=== PATIENT | male | born 1970 | race Caucasian/White ===

== ENCOUNTER 2019-08-12 18:41 | Inpatient (IN) ==
[2019-08-12] MEDS ORDERED: ONDANSETRON INJ 2 MG/ML 2 ML VIAL IV STA (19:17)
[2019-08-12] MEDS ORDERED: LORazepam 1 MG/2 ML VIAL IV STA ×2 (19:28→22:30)
[2019-08-12] MEDS ORDERED: SODIUM CHLORIDE 0.9% 1000ML 1,000 ML IV SCH (19:30)
[2019-08-12 19:51] LABS: Hematocrit (blood only) 35.9 % (42-52); Hemoglobin 12.7 g/dL (14.0-18.0); Mean Corpuscular Hemoglobin 34.8 pg (25-34); Mean Corpuscular Hgb Conc 35.4 g/dL (32-36); Mean Corpuscular Volume 98.4 fL (80-100); Mean Platelet Volume 10.6 fL (7.4-10.4); Platelet Count 91 K/uL (130-400); RDW Standard Deviation 46.8 fL (36.4-46.3); Red Blood Count 3.65 M/uL (4.7-6.1); White Blood Count 3.81 K/uL (4.8-10.8)
[2019-08-12 19:52] LABS: Basophils # (auto) 0.04 K/uL (0-0.2); Eosinophils # (auto) 0.01 K/uL (0-0.5); Eosinophils % (auto) 0.3 %; Immature Granulocytes # (auto) 0.01 K/uL (0.00-0.02); Immature Granulocytes % (auto) 0.3 %; Lymphocytes # (auto) 1.26 K/uL (1.2-3.4); Lymphocytes % (auto) 33.1 %; Monocytes # (auto) 0.47 K/uL (0.11-0.59); Monocytes % (auto) 12.3 %; Neutrophils # (auto) 2.02 K/uL (1.4-6.5); Platelet Estimate Decreased (Normal)
[2019-08-12 19:53] LABS: Alanine Aminotransferase 262 U/L (12-78); Albumin Level 3.8 gm/dl (3.4-5.0); Aspartate Aminotransferase 560 U/L (15-37); BUN Creatinine Ratio 8.1 (10-20); Blood Urea Nitrogen 10 mg/dl (7-18); Calcium 8.9 mg/dl (8.5-10.1); Carbon Dioxide 21 mmol/L (21-32); Chloride 95 mmol/L (98-107); Creatinine Clr Calc Pharmacy 76.6 ml/min; Est GFR (African American) 84.1; Est GFR (Non-African American) 72.5; Glucose 178 mg/dl (70-99); Magnesium 1.7 mg/dl (1.8-2.4); Potassium 3.4 mmol/L (3.5-5.1); Sodium 137 mmol/L (136-145)
--- NOTE | 2019-08-12 19:53 | XRay Report ---
XR chest 1V portable CLINICAL HISTORY: weakness COMPARISON STUDY: No previous studies for comparison. FINDINGS: The cardiac and mediastinal contours are normal. There is no evidence of focal pulmonary co nsolidation. There is no evidence of failure. No pleural effusions are visualized.[ IMPRESSION: No active disease in the chest. Electronically signed by: Dax Lopez M.D. 08/12/2019 7:51 PM
[2019-08-12 20:04] LABS: Albumin Globulin Ratio 0.9 (0.9-2); Alkaline Phosphatase 107 U/L (45-117); Bilirubin,Total 1.5 mg/dl (0.2-1); Globulin 4.3 gm/dl (2.5-4.0); Total Protein 8.1 gm/dl (6.4-8.2); Troponin I < 0.015 ng/ml (0-0.045)
[2019-08-12] MEDS ORDERED: MAGNESIUM SULFATE / D5W 1 GM/100 ML BAG IV ONE (20:06)
[2019-08-12] MEDS ORDERED: THIAMINE HCL 100 MG in SYRINGE 9 ML IV STA (20:46)
[2019-08-12] MEDS ORDERED: FOLIC ACID 1 MG in SYRINGE 9.8 ML IV STA (20:46)
[2019-08-12] MEDS ORDERED: DIAZEPAM 5 MG/ML INJ 10ML VIAL IV STA (20:46)
[2019-08-12] MEDS ORDERED: NORMOSOL-R 250 ML IV ONE (20:48)
[2019-08-12] MEDS ORDERED: POTASSIUM CHLORIDE 20 MEQ TABCR PO STA (20:52)
[2019-08-12] MEDS ORDERED: GABAPENTIN 800 MG TAB PO STA (20:53)
--- NOTE | 2019-08-12 21:05 | CT Scan Report ---
CT head/brain wo con CLINICAL HISTORY: seizure COMPARISON STUDY: No previous studies for comparison. TECHNIQUE: Axial CT of the brain is performed from the vertex to the skull base. IV contrast was not administered for this examination. A dose lowering technique was utilized adhering to the principles of ALARA. CT DOSE: 537.48 mGy.cm FINDINGS: No intra or extra-axial mass lesions are visualized. There is no CT evidence of acute cortical infarc tion. There is no evidence of midline shift. There is no acute hemorrhage. No calvarial fractures ar e visualized. There is no evidence of pathologic ventricular dilatation. There is no evidence of acute sinusitis IMPRESSION: Normal noncontrast head CT. Electronically signed by: Dax Lopez M.D. 08/12/2019 9:04 PM
[2019-08-12 21:47] LABS: Lyme Ab IgG w/WB Rflx Negative (Negative); Lyme Ab IgM w/WB Rflx Negative (Negative)
[2019-08-12 21:47] LABS: Base Excess VBG 7.2 mEq/L; Oxygen Saturation VBG 65.9 %; pH VBG 7.48 (7.36-7.41)
--- NOTE | 2019-08-12 22:27 | History & Physical Report ---
Date of Service August 12, 2019 Assessment & Plan (1) Seizure: New onset Secondary to alcohol withdrawal hypertension, elevated secondary to the above Hypokalemia secondary to emesis, clinical dehydration, home diuretic hypomagnesemia secondary to alcoholism Anemia ? Unknown duration New onset thrombocytopenia possibly from alcoholism Alcoholic hepatitis, Maddrey's DF score 1.5 points Hyperglycemia rule out DM Medical telemetry Seizure precautions, Ativan as needed EEG, Neurology consult RE new onset seizures MRI brain with and without contrast for new onset seizures (if sedation possible as per patient request) DT precautions Replace electrolytes, IVF Appropriate to hold home diuretic for now until patient euvolemic Clonidine as needed uncontrolled blood pressure in the setting of alcohol withdrawal Psych consult RE depression Anemia work-up, transfuse PRBC if hemoglobin less than 7 and/or for symptomatic anemia DVT prophylaxis. SCDs RE thrombocytopenia Full code Patient's requesting updates from providers. Ms. Alyx Young, contact #[phone]. History of Present Illness Chief Complaint: Seizures Primary Care Provider: NO PCP History obtained from patient, family, and records. Medical history significant for hypertension, alcohol abuse, osteoarthritis. Patient is a resident of [place], [place] who is currently in town with his to visit daughter who is a [employer] freshman. They were on an indoor tour of the [place] when patient stood up from his seat and was noted to have seizure activity lasting 2 minutes described as stiffening followed by shaking. Tongue abrasion noted after episode. No incontinence. Patient unresponsive for about 5 minutes after episode as per . Patient noted to be confused when he woke up. No prior episodes. Patient denies headaches. Patient admits to drinking heavily about 4 days in a week the last 5 to 6 months due to some personal stressors. Possible depression as per patient, denies suicidality. Patient has not been sleeping well and eating as much at home the last few months. Patient noted to be shaking on days when he is not drinking as per . Patient denies chest pain, S OB, abdominal pain, black/bloody stools, dysuria symptoms. One episode of emesis after seizure episode. At the ER, patient received IV IV Ativan. Medical History as above Surgical History : Knee surgeries Family History : Depression, diabetes Personal/Social history : Non-smoker, alcohol abuse, currently unemployed, prior work at a [employer] Allergies Allergy/AdvReac Type Severity Reaction Status Date / Time No Known Allergies Allergy Verified 08/12/19 20:46 Home Medications Home Medications Medication Instructions Recorded Confirmed Type hydrochlorothiazide 25 mg PO DAILY 08/12/19 08/12/19 History trazodone 50 mg PO HS 08/12/19 08/12/19 History Past Med/Surg History Medical History Hypertension Mood disorder Family History Other No pertinent family history in first degree relatives Social History Preferred Language: [place] Beliefs That Will Affect Care: None Current Living Situation: Spouse and Family Feels Safe at Home: No Is there a partner from a previous relationship who is making you feel unsafe now?: No Any Concerns about Your Family Situation: No Would You Like to Speak to Someone About Your Situation: No Safety Concerns: Feels Safe At This Time Smoking Status: Never smoker Do You Dip or Chew Tobacco: No ; Hx Alcohol Use: Yes Alcohol type: hard liquor Hx Substance Use: No Review of Systems Review of Systems: As per HPI, all 10 systems reviewed, all other ROS negative Physical Exam Physical Exam: GENERAL: Slightly uncomfortable, slightly anxious, tremulous, no respiratory distress SKIN: Pallor , warm HEENT: Pale palpebral conjunctivae, no ptosis, dry buccal mucosa, contusions on the lateral edges of the tongue NECK : Supple, no tenderness CHEST : CTA, no tenderness HEART : Tachycardic, no obvious murmurs ABDOMEN: Some distention, nontender EXTREMITIES : No LE swelling/tenderness, no other conspicuous deformities noted NEUROLOGIC : Coherent, no facial asymmetry, tremulous Results & Data Vital Signs (Past 12 Hours) Vital Signs Temp Pulse Resp BP Pulse Ox 08/12/19 18:41 37.3 C 120 H 20 146/100 H 95 Laboratory Results Laboratory Results WBC 3.81 K/uL (4.8-10.8) L 08/12/19 19:11 RBC 3.65 M/uL (4.7-6.1) L 08/12/19 19:11 Hgb 12.7 g/dL (14.0-18.0) L 08/12/19 19:11 Hct 35.9 % (42-52) L 10/11/19 19:11 MCV 98.4 fL (80-100) 08/12/19 19:11 MCH 34.8 pg (25-34) H 08/12/19 19: MCHC 35.4 g/dL (32-36) 08/12/19 19:11 RDW Std Deviation 46.8 fL (36.4-46.3) H 08/12/19 19: RDW Coeff of Juan 13.0 % (11.5-14.5) 08/12/19: Plt Count 91 K/uL (130-400) L 08/12/19: MPV 10.6 fL (7.4-10.4) H 08/12/19: Immature Gran % (Auto) 0.3 % 08/12/19: Neut % (Auto) 53.0 % 08/12/19: Lymph % (Auto) 33.1 % 08/12/19: [place] % (Auto) 12.3 % 08/12/19: Eos % (Auto) 0.3 % 08/12/19: Baso % (Auto) 1.0 % 08/12/19 19: Immature Gran # (Auto) 0.01 K/uL (0.00-0.02) 08/12/19: Neut # (Auto) 2.02 K/uL (1.4-6.5) 08/12/19: Lymph # (Auto) 1.26 K/uL (1.2-3.4) 08/12/19: [place] # (Auto) 0.47 K/uL (0.11-0.59) 08/12/19: Eos # (Auto) 0.01 K/uL (0-0.5) 08/12/19: Baso # (Auto) 0.04 K/uL (0-0.2) 08/12/19: Platelet Estimate Decreased (Normal) L 08/12/19: VBG pH 7.48 (7.36-7.41) H 08/12/19 21:28 VBG pCO2 43 mmHg (38-50) 08/12/19 21:28 VBG pO2 34 mmHg 08/12/19 21:28 VBG HCO3 31 mmol/L 08/12/19 21:28 VBG O2 Saturation 65.9 % 08/12/19 21:28 VBG Base Excess 7.2 mEq/L 08/12/19 21:28 Barometric Pressure 733.7 mm/Hg 08/12/19 21:28 Sodium 137 mmol/L (136-145) 08/12/19 19:11 Potassium 3.4 mmol/L (3.5-5.1) L 08/12/19 19:11 Chloride 95 mmol/L (98-107) L 08/12/19 19:11 Carbon Dioxide 21 mmol/L (21-32) 08/12/19 19:11 Anion Gap 21.0 (3-11) H 08/12/19 19:11 BUN 10 mg/dl (7-18) 08/12/19 19:11 Creatinine 1.18 mg/dl (0.6-1.4) 08/12/19 19: Est Cr Clr Drug Dosing 76.6 ml/min 08/12/19 19:11 Est GFR ( Amer) 84.1 08/12/19 19:11 Est GFR (Non-Af Amer) 72.5 08/12/19 19:11 BUN/Creatinine Ratio 8.1 (10-20) L 08/12/19 19: Glucose 178 mg/dl (70-99) H 08/12/19 19:11 Lactate 2.0 mmol/L (0.4-2.0) 08/12/19 21:28 Calcium 8.9 mg/dl (8.5-10.1) 08/12/19 19: Magnesium 1.7 mg/dl (1.8-2.4) L 08/12/19 19:11 Total Bilirubin 1.5 mg/dl (0.2-1) H 08/12/19 19:11 AST 560 U/L (15-37) H 08/12/19 19:11 ALT 262 U/L (12-78) H 08/12/19 19:11 Alkaline Phosphatase 107 U/L (45-117) 08/12/19 19:11 Troponin I < 0.015 ng/ml (0-0.045) 08/12/19 19:11 Total Protein 8.1 gm/dl (6.4-8.2) 08/12/19 19:11 Albumin 3.8 gm/dl (3.4-5.0) 08/12/19 19:11 Globulin 4.3 gm/dl (2.5-4.0) H 08/12/19 19:11 Albumin/Globulin Ratio 0.9 (0.9-2) 08/12/19 19:11 Procalcitonin 0.21 ng/ml (0-0.5) 08/12/19 19:11 TSH 1.360 uIu/ml (0.300-4.500) 08/12/19 19:11 Ethyl Alcohol mg/dL < 3.0 mg/dl (0-3) 08/12/19 20:13 Anaplasma Smear See Comment 08/12/19 19:11 Lyme Disease IgG Ab Negative (Negative) 08/12/19 19:11 Lyme Disease IgM Ab Negative (Negative) 08/12/19 19:[address] head: Normal Chest x-ray : No active disease EKG as per my interpretation : Rate 115, sinus tachycardia, normal axis T wave flattening inferior leads
[2019-08-12 23:17] LABS: INR 1.1 (0.9-1.1); Partial Thromboplastin Ratio 0.9; Partial Thromboplastin Time 23.4 Seconds (21.0-31.0); Prothrombin Time 11.3 Seconds (9.0-12.0)
--- NOTE | 2019-08-12 23:25 | Emergency Department Note ---
Entered by Shanta Pearce acting as a scribe for History of Present Illness General Chief complaint: Seizure Stated complaint: SEIZURE Time Seen by Provider: 08/12/19 19:16 Source: patient History of Present Illness Onset (ago): hour(s) (1.5) Location: head (general) Pain Consistency: + other (episode ) Quality: + other (seizure-like activity) Associated symptoms: + confusion, + nausea/vomiting (now resolved ) and + other (positive shaking; positive not responding; positive stiffness; negative pain; negative abnormal speech; negative trouble with vision and hearing ); no headaches The patient is a 48 year old white male w/ PMHx of HTN and mood disorder who presents to the ED w/ CC of an episode of seizure-like activity beginning about 1.5 hours prior to arrival, per the patient's . The patient's states that at about 1805 the patient was sitting down when his arms began to shake and he was not responding. Per the patient's , the patient became stiff after shaking. The patient's states that this episode lasted for about two minutes. Per the patient's , the patient did not fall or hit his head during this episode. The patient states that he feels confused currently. Per the patient's , the patient vomited once after arrival to the ED, but the patient denies any current nausea. The patient denies current headache, pain, abnormal speech, and trouble with vision and hearing. He denies any recent falls. The patient denies any changes to his medications. The patient reports that he does not sleep well. He reports intermittent alcohol use. Home Medications Home Medications Medication Instructions Recorded Confirmed Type hydrochlorothiazide 25 mg PO DAILY 08/12/19 08/12/19 History trazodone 50 mg PO HS 08/12/19 08/12/19 History Allergies Allergy/AdvReac Type Severity Reaction Status Date / Time No Known Allergies Allergy Verified 08/12/19 20:46 Past Med/Surg History Medical History Hypertension Mood disorder Family History Other No pertinent family history in first degree relatives Social History Feels Safe at Home: Yes Smoking Status: Never smoker Review of Systems See HPI for pertinent positives & negatives. and A total of 10 systems reviewed and were otherwise negative Physical Exam Vital Signs Vital Signs - 24 hr 08/12/19 18:41 08/12/19 22:51 Temperature 37.3 C Temperature Source Oral Sepsis Recent Fever Within 48 Hours No Sepsis New/Unexplained Change in Mental Status No Sepsis Action Taken by Nursing No Action Required Pulse Rate 120 H Pulse Rate [Left Radial] 106 H Pulse Rhythm [Left Radial] Regular Pulse Strength [Left Radial] Normal Respiratory Rate 20 22 Respiratory Effort / Characteristics Non-Labored Non-Labored Respiratory Depth Normal Normal Respiratory Pattern Regular Regular Blood Pressure 146/100 H Blood Pressure [Left Arm] 140/88 Blood Pressure Mean 115 Blood Pressure Mean [Left Arm] 105 Blood Pressure Position [Left Arm] Lying Pulse Oximetry 95 98 Oxygen Delivery Method Room Air Room Air GENERAL: Tremulous in appearance. Anxious. EYE EXAM: Normal conjunctiva. PERRL, no anisocoria and EOM's grossly intact w/o pain. OROPHARYNX: Moist mucus membranes. Grossly normal dentition. NECK: Supple, no nuchal rigidity, no adenopathy, non-tender. no signs of meningismus. LUNGS: Clear to auscultation. Normal chest wall mechanics. HEART: Tachycardic and regular, no MRG. ABDOMEN: Abdomen soft, non-tender, normo-active bowel sounds, no masses, no rebound or guarding. BACK: No CVA TTP. SKIN: No rashes and no bruising. UPPER EXTREMITIES: Upper extremities are grossly normal. LOWER EXTREMITIES: No pitting edema. No calf pain. NEURO EXAM: A&O x3, cranial nerves II-XII grossly intact, normal speech, 5/5 strength throughout, no sensory deficits, good finger to nose, no pronator drift, moves all 4 extremities on command w/o issue. Bilateral upper and lower extremity tremors noted. Course 1921: Past medical records reviewed. The patient was evaluated in room C10. A complete history and physical exam was performed. 2033: Upon reevaluation, the patient reports drinking 1/2 pint of vodka at least four times per week. 2051: I discussed the case with Dr. Hansen Hospitalist who accepts the patient for further evaluation. Consultations Consultation #1: [facility]. Time: 20:52 Administered Medications Discontinued Medications Diazepam (Valium) 10 mg IV NOW STA Stop: 08/12/19 20:47 Last Admin: 08/12/19 21:04 Dose: 10 mg Documented by: [id number] Gabapentin (Neurontin) 1,200 mg PO NOW STA Stop: 08/12/19 20:54 Last Admin: 08/12/19 22:48 Dose: 1,200 mg Documented by: [id number] Sodium Chloride (Nss 1000ml) 1,000 mls @ 999 mls/hr IV .Q1H1M TRE Stop: 08/12/19 20:30 Last Infusion: 08/12/19 21:06 Dose: 0 mls/hr Documented by: [id number] Admin: 08/12/19 19:50 Dose: 999 mls/hr Documented by: [id number] Lorazepam (Ativan) 1 mg in 2 mls @ 2 mls/min IV NOW STA Stop: 08/12/19 19:29 Last Admin: 08/12/19 19:47 Dose: 2 mls/min Documented by: [id number] Magnesium Sulfate/Dextrose (Magnesium Sulfate / D5w) 1 gm in 100 mls @ 100 mls/hr IV ONE ONE Stop: 08/12/19 21:05 Last Infusion: 08/12/19 21:24 Dose: 0 mls/hr Documented by: [id number] Admin: 08/12/19 20:20 Dose: 100 mls/hr Documented by: [id number] Thiamine HCl 100 mg/ Syringe 10 mls @ 2 mls/min IV NOW STA Stop: 08/12/19 20:50 Last Admin: 08/12/19 21:27 Dose: 2 mls/min Documented by: [id number] Parenteral Electrolytes (Normosol-R) 250 mls @ 250 mls/hr IV .Q1H ONE Stop: 08/12/19 21:47 Last Admin: 08/12/19 21:45 Dose: 250 mls/hr Documented by: [id number] Lorazepam (Ativan) 1 mg in 2 mls @ 2 mls/min IV NOW STA Stop: 08/12/19 22:31 Last Admin: 08/12/19 22:51 Dose: 2 mls/min Documented by: [id number] Ondansetron HCl (Zofran) 4 mg IV NOW STA Stop: 08/12/19 19:18 Last Admin: 08/12/19 19:47 Dose: 4 mg Documented by: [id number] Potassium Chloride (Klor-Con M20) 40 meq PO NOW STA Stop: 08/12/19 20:53 Last Admin: 08/12/19 22:47 Dose: 40 meq Documented by: [id number] Medical Decision Making Medical Records Attestation: I reviewed the patient's medical records. Home Medications Current Medication List: was personally reviewed by me Laboratory Data Attestation: I reviewed the patient's lab results. Result diagrams: 08/12/19 19:11 08/12/19 19:11 Lab Results 08/12/19 08/12/19 08/12/19 Range/Units 19: 19:11 19:11 WBC 3.81 L (4.8-10.8) K/uL RBC 3.65 L (4.7-6.1) M/uL Hgb 12.7 L (14.0-18.0) g/dL Hct 35.9 L (42-52) % MCV 98.4 (80-100) fL MCH 34.8 H (25-34) pg MCHC 35.4 (32-36) g/dL RDW Std Deviation 46.8 H (36.4-46.3) fL RDW Coeff of Juan 13.0 (11.5-14.5) % Plt Count 91 L (130-400) K/uL MPV 10.6 H (7.4-10.4) fL Immature Gran % (Auto) 0.3 % Neut % (Auto) 53.0 % Lymph % (Auto) 33.1 % Charlotte % (Auto) 12.3 % Eos % (Auto) 0.3 % Baso % (Auto) 1.0 % Immature Gran # (Auto) 0.01 (0.00-0.02) K/uL Neut # (Auto) 2.02 (1.4-6.5) K/uL Lymph # (Auto) 1.26 (1.2-3.4) K/uL Charlotte # (Auto) 0.47 (0.11-0.59) K/uL Eos # (Auto) 0.01 (0-0.5) K/uL Baso # (Auto) 0.04 (0-0.2) K/uL Platelet Estimate Decreased L (Normal) PT (9.0-12.0) Seconds INR (0.9-1.1) APTT (21.0-31.0) Seconds PTT Ratio VBG pH (7.36-7.41) VBG pCO2 (38-50) mmHg VBG pO2 mmHg VBG HCO3 mmol/L VBG O2 Saturation % VBG Base Excess mEq/L Barometric Pressure mm/Hg Sodium 137 (136-145) mmol/L Potassium 3.4 L (3.5-5.1) mmol/L Chloride 95 L (98-107) mmol/L Carbon Dioxide 21 (21-32) mmol/L Anion Gap 21.0 H (3-11) BUN 10 (7-18) mg/dl Creatinine 1.18 (0.6-1.4) mg/dl Est Cr Clr Drug Dosing 76.6 ml/min Est GFR ( Amer) 84.1 Est GFR (Non-Af Amer) 72.5 BUN/Creatinine Ratio 8.1 L (10-20) Glucose 178 H (70-99) mg/dl Lactate (0.4-2.0) mmol/L Calcium 8.9 (8.5-10.1) mg/dl Magnesium 1.7 L (1.8-2.4) mg/dl Total Bilirubin 1.5 H (0.2-1) mg/dl AST 560 H (15-37) U/L ALT 262 H (12-78) U/L Alkaline Phosphatase 107 (45-117) U/L Troponin I < 0.015 (0-0.045) ng/ml Total Protein 8.1 (6.4-8.2) gm/dl Albumin 3.8 (3.4-5.0) gm/dl Globulin 4.3 H (2.5-4.0) gm/dl Albumin/Globulin Ratio 0.9 (0.9-2) Procalcitonin (0-0.5) ng/ml TSH 1.360 (0.300-4.500) uIu/ml Ethyl Alcohol mg/dL (0-3) mg/dl Anaplasma Smear See Comment Lyme Disease IgG Ab Negative (Negative) Lyme Disease IgM Ab Negative (Negative) 10/11/19 10/11/19 10/11/19 Range/Units 19:11 19:11 20:13 WBC (4.8-10.8) K/uL RBC (4.7-6.1) M/uL Hgb (14.0-18.0) g/dL Hct (42-52) % MCV (80-100) fL MCH (25-34) pg MCHC (32-36) g/dL RDW Std Deviation (36.4-46.3) fL RDW Coeff of Juan (11.5-14.5) % Plt Count (130-400) K/uL MPV (7.4-10.4) fL Immature Gran % (Auto) % Neut % (Auto) % Lymph % (Auto) % Charlotte % (Auto) % Eos % (Auto) % Baso % (Auto) % Immature Gran # (Auto) (0.00-0.02) K/uL Neut # (Auto) (1.4-6.5) K/uL Lymph # (Auto) (1.2-3.4) K/uL Charlotte # (Auto) (0.11-0.59) K/uL Eos # (Auto) (0-0.5) K/uL Baso # (Auto) (0-0.2) K/uL Platelet Estimate (Normal) PT 11.3 (9.0-12.0) Seconds INR 1.1 (0.9-1.1) APTT 23.4 (21.0-31.0) Seconds PTT Ratio 0.9 VBG pH (7.36-7.41) VBG pCO2 (38-50) mmHg VBG pO2 mmHg VBG HCO3 mmol/L VBG O2 Saturation % VBG Base Excess mEq/L Barometric Pressure mm/Hg Sodium (136-145) mmol/L Potassium (3.5-5.1) mmol/L Chloride (98-107) mmol/L Carbon Dioxide (21-32) mmol/L Anion Gap (3-11) BUN (7-18) mg/dl Creatinine (0.6-1.4) mg/dl Est Cr Clr Drug Dosing ml/min Est GFR ( Amer) Est GFR (Non-Af Amer) BUN/Creatinine Ratio (10-20) Glucose (70-99) mg/dl Lactate (0.4-2.0) mmol/L Calcium (8.5-10.1) mg/dl Magnesium (1.8-2.4) mg/dl Total Bilirubin (0.2-1) mg/dl AST (15-37) U/L ALT (12-78) U/L Alkaline Phosphatase (45-117) U/L Troponin I (0-0.045) ng/ml Total Protein (6.4-8.2) gm/dl Albumin (3.4-5.0) gm/dl Globulin (2.5-4.0) gm/dl Albumin/Globulin Ratio (0.9-2) Procalcitonin 0.21 (0-0.5) ng/ml TSH (0.300-4.500) uIu/ml Ethyl Alcohol mg/dL < 3.0 (0-3) mg/dl Anaplasma Smear Lyme Disease IgG Ab (Negative) Lyme Disease IgM Ab (Negative) 08/12/19 08/12/19 Range/Units 21:28 21:28 WBC (4.8-10.8) K/uL RBC (4.7-6.1) M/uL Hgb (14.0-18.0) g/dL Hct (42-52) % MCV (80-100) fL MCH (25-34) pg MCHC (32-36) g/dL RDW Std Deviation (36.4-46.3) fL RDW Coeff of Juan (11.5-14.5) % Plt Count (130-400) K/uL MPV (7.4-10.4) fL Immature Gran % (Auto) % Neut % (Auto) % Lymph % (Auto) % Charlotte % (Auto) % Eos % (Auto) % Baso % (Auto) % Immature Gran # (Auto) (0.00-0.02) K/uL Neut # (Auto) (1.4-6.5) K/uL Lymph # (Auto) (1.2-3.4) K/uL Charlotte # (Auto) (0.11-0.59) K/uL Eos # (Auto) (0-0.5) K/uL Baso # (Auto) (0-0.2) K/uL Platelet Estimate (Normal) PT (9.0-12.0) Seconds INR (0.9-1.1) APTT (21.0-31.0) Seconds PTT Ratio VBG pH 7.48 H (7.36-7.41) VBG pCO2 43 (38-50) mmHg VBG pO2 34 mmHg VBG HCO3 31 mmol/L VBG O2 Saturation 65.9 % VBG Base Excess 7.2 mEq/L Barometric Pressure 733.7 mm/Hg Sodium (136-145) mmol/L Potassium (3.5-5.1) mmol/L Chloride (98-107) mmol/L Carbon Dioxide (21-32) mmol/L Anion Gap (3-11) BUN (7-18) mg/dl Creatinine (0.6-1.4) mg/dl Est Cr Clr Drug Dosing ml/min Est GFR ( Amer) Est GFR (Non-Af Amer) BUN/Creatinine Ratio (10-20) Glucose (70-99) mg/dl Lactate 2.0 (0.4-2.0) mmol/L Calcium (8.5-10.1) mg/dl Magnesium (1.8-2.4) mg/dl Total Bilirubin (0.2-1) mg/dl AST (15-37) U/L ALT (12-78) U/L Alkaline Phosphatase (45-117) U/L Troponin I (0-0.045) ng/ml Total Protein (6.4-8.2) gm/dl Albumin (3.4-5.0) gm/dl Globulin (2.5-4.0) gm/dl Albumin/Globulin Ratio (0.9-2) Procalcitonin (0-0.5) ng/ml TSH (0.300-4.500) uIu/ml Ethyl Alcohol mg/dL (0-3) mg/dl Anaplasma Smear Lyme Disease IgG Ab (Negative) Lyme Disease IgM Ab (Negative) Imaging Data Radiologist's Impression: Radiology results as stated below per my review and the radiologist's interpretation: XR chest 1V portable CLINICAL HISTORY: weakness COMPARISON STUDY: No previous studies for comparison. FINDINGS: The cardiac and mediastinal contours are normal. There is no evidence of focal pulmonary consolidation. There is no evidence of failure. No pleural effusions are visualized.[ IMPRESSION: No active disease in the chest. Electronically signed by: Dax Lopez M.D. 08/12/2019 7:[address] head/brain wo con CLINICAL HISTORY: seizure COMPARISON STUDY: No previous studies for comparison. TECHNIQUE: Axial CT of the brain is performed from the vertex to the skull base. IV contrast was not administered for this examination. A dose lowering technique was utilized adhering to the principles of ALARA. CT DOSE: 537.48 mGy.cm FINDINGS: No intra or extra-axial mass lesions are visualized. There is no CT evidence of acute cortical infarction. There is no evidence of midline shift. There is no acute hemorrhage. No calvarial fractures are visualized. There is no evidence of pathologic ventricular dilatation. There is no evidence of acute sinusitis IMPRESSION: Normal noncontrast head CT. Electronically signed by: Dax Lopez M.D. 08/12/2019 9:04 PM ECG Data Attestation: I personally reviewed and interpreted this ECG as follows: Indication: other (seizure) Rate (beats per minute): 116 Rhythm: sinus tachycardia Findings: + other (normal intervals; normal axis; no ST segment changes) Blood Pressure Blood Pressure Findings: Elevated blood pressure Blood Pressure Disposition: further management by hospitalist VANESSA Narrative The patient is a 48 year old white male w/ PMHx of HTN and mood disorder who presents to the ED w/ CC of an episode of seizure-like activity beginning about 1.5 hours prior to arrival, per the patient's . Differential diagnosis includes etiologies such as infection, hypoglycemia, electrolyte abnormalities, cardiac sources, intracerebral event, trauma, toxicologic, neurologic, as well as others were entertained. Patient was seen and evaluated the bedside. The patient did recently travel from [place] for parents weekend. The patient is a little tremulous in appearance. Patient denies any heavy alcohol use or tobacco use. No drug use in the stimulants. The patient does state he is a little anxious and did vomit just prior to being seen. The patient no longer complains any nausea. The patient is otherwise having a nonfocal neurologic exam no visual deficits. The patient has good [id number] although he does have some tremulous bilateral upper and lower extremities. He did have blood work completed along with urinalysis was given IV fluids along with a CT the head. Patient's blood work did show mild pancytopenia. Sodium is normal with the patient did have elevations in LFTs with a greater AST to ALT ratio. I did question him a second time about his drinking habits. The patient did admit to drinking 1/2 pint of vodka at least 4 times a week. I do believe that given this concern the patient did have an alcohol withdrawal seizure as the patient last drank yesterday. The patient is from [place] and so I did also add an Anaplasma and Lyme's test. Patient did receive Valium IV, IV fluids, thiamine and folic acid. I did speak the on-call hospitalist agreed to further evaluate treat the patient. Patient was admitted to the medicine service. Impression & Plan Alcohol withdrawal, Seizure, Dehydration, Transaminitis, Pancytopenia Critical Care Time Critical Care Time: Yes Total Critical Care Time: 55 I have personally spent 55 minutes of critical care time in the direct management of this patient. This includes bedside care, interpretation of diagnostic studies, and testing, discussion with consultants, patient, and family members, and other required patient management activities. This 55 minutes is in excess of all separately billable procedures. Discharge Plan Visit Data Chief Complaint: Seizure Stated Complaint: SEIZURE ED Provider: Sandro Laws Discharge Problem: Alcohol withdrawal, Seizure, Dehydration, Transaminitis, Pancytopenia Patient Disposition: Being Evaluated by Hospitalist Forms Stand Alone Forms: My [facility] Prescriptions Prescriptions: No Action trazodone 50 mg tablet 50 mg PO HS RF: 0 hydrochlorothiazide 25 mg tablet 25 mg PO DAILY RF: 0 Referrals Referrals: PCP,NO [Primary Care Provider] - Discharge Problem: Alcohol withdrawal Qualifiers: Complication of substance-induced condition: with unspecified complication Qualified Code(s): F10.239 - Alcohol dependence with withdrawal, unspecified The scribe's documentation has been prepared under my direction and personally reviewed by me in its entirety. I confirm that the note above accurately reflects all work, treatment, procedures, and medical decision making performed by me.
[2019-08-12] MEDS ORDERED: LORazepam 3 MG/6 ML VIAL IV PRN (23:46)
[2019-08-12] MEDS ORDERED: GABAPENTIN 1200MG ALCOHOL WITHDRAWAL LOAD PO STA (23:46)
[2019-08-12] MEDS ORDERED: ATIVAN IV ALCOHOL WITHDRAWL IV SCH (23:46)
[2019-08-12] MEDS ORDERED: LORazepam 1 MG/2 ML VIAL IV PRN ×2 (23:46)
[2019-08-12] MEDS ORDERED: OXYCODONE HCL IR 5 MG TAB (IMMEDIATE RELEASE) PO PRN (23:46)
[2019-08-12] MEDS ORDERED: PROMETHAZINE HCL 12.5 MG in SODIUM CHLORIDE 0.9% 50 ML IV PRN (23:46)
[2019-08-12] MEDS ORDERED: ACETAMINOPHEN 325 MG TAB PO PRN (23:46)
[2019-08-13] MEDS ORDERED: NORMOSOL-R 1,000 ML IV ONE (02:00)
[2019-08-13 06:13] LABS: Estimated Average Glucose 123 mg/dl; Hemoglobin A1C 5.9 % (4.5-5.6)
[2019-08-13] MEDS: GABAPENTIN 600 MG TAB PO SCH ×2 (06:21→12:04)
[2019-08-13 06:26] LABS: Hematocrit (blood only) 31.5 % (42-52); Hemoglobin 10.9 g/dL (14.0-18.0); Mean Corpuscular Hemoglobin 34.2 pg (25-34); Mean Corpuscular Hgb Conc 34.6 g/dL (32-36); Mean Corpuscular Volume 98.7 fL (80-100); RDW Standard Deviation 47.2 fL (36.4-46.3); Red Blood Count 3.19 M/uL (4.7-6.1); White Blood Count 2.85 K/uL (4.8-10.8)
[2019-08-13 06:27] LABS: Mean Platelet Volume 10.3 fL (7.4-10.4); Platelet Count 64 K/uL (130-400)
[2019-08-13 06:57] LABS: Basophils # (auto) 0.02 K/uL (0-0.2); Basophils % (auto) 0.7 %; Eosinophils # (auto) 0.01 K/uL (0-0.5); Eosinophils % (auto) 0.4 %; Giant Platelets 1+; Lymphocytes # (auto) 0.77 K/uL (1.2-3.4); Monocytes # (auto) 0.54 K/uL (0.11-0.59); Monocytes % (auto) 18.9 %; Neutrophils # (auto) 1.51 K/uL (1.4-6.5); Reticulocytes # 0.03 10^6/uL (0.02-0.10)
[2019-08-13 06:59] LABS: Albumin Level 3.1 gm/dl (3.4-5.0); BUN Creatinine Ratio 10.8 (10-20); Calcium 8.4 mg/dl (8.5-10.1); Creatinine Clr Calc Pharmacy 102.7 ml/min; Est GFR (African American) 117.7; Est GFR (Non-African American) 101.6; Magnesium 2.3 mg/dl (1.8-2.4); Potassium 3.1 mmol/L (3.5-5.1)
[2019-08-13 07:14] LABS: Albumin Globulin Ratio 0.9 (0.9-2); Bilirubin,Total 2.1 mg/dl (0.2-1); Globulin 3.5 gm/dl (2.5-4.0); Total Protein 6.6 gm/dl (6.4-8.2)
[2019-08-13] MEDS ORDERED: POTASSIUM CHLORIDE 10 MEQ TABCR PO STA (07:32)
[2019-08-13] MEDS ORDERED: LORazepam 0.5 MG/1 ML VIAL IV PRN (07:43)
[2019-08-13] MEDS: SODIUM CHLORIDE 0.9% 1000ML 1,000 ML IV SCH ×2 (08:00→16:20)
[2019-08-13] MEDS: POTASSIUM CHLORIDE / WTR 10 MEQ/100 ML PLCT IV SCH ×4 (08:00→12:05)
[2019-08-13] MEDS: FOLIC ACID 1 MG TAB PO SCH (08:01)
[2019-08-13] MEDS: MULTIVITAMIN TAB PO SCH (08:01)
[2019-08-13] MEDS: THIAMINE HCL 100 MG TAB PO SCH (08:01)
[2019-08-13 08:03] LABS: Bilirubin Direct 0.8 mg/dl (0-0.2); Phosphorus 3.3 mg/dl (2.5-4.9)
[2019-08-13 08:49] LABS: Folate (Folic Acid) > 24.00 ng/ml (>5.38); Vitamin B12 719 pg/ml (211-911)
--- NOTE | 2019-08-13 08:54 | Neurology Consultation ---
Date of Consultation August 13, 2019 Assessment & Plan (1) Alcohol withdrawal: A 48 year old Male with alcohol use disorder admitted s/p an alcohol withdrawal seizure. Last drink was 18 hours ago. No history of prior seizures. CT head negative. Non focal examine. Patient very tremulous this morning with intention tremor. - Recommend standard 6-day Ativan taper, 2 mg Q8hr x6 doses, 1 mg Q8hr x6 doses, then 0.5 mg Q8hr x6 doses. - Recommend psychiatry consult - Discussed abstinence from alcohol with patient an - Discussed driving restrictions in [place] which state patient is not allowed to drive for 6-months after a seizure. He states he lives in [place]. Please call me with any further questions or concerns. (2) Seizure: History of Present Illness Attending Physician: Ben Alcala MD History of Present Illness A 48 year old male with alcohol use disorder admitted with alcohol withdrawal seizure yesterday. Patient witnessed to have general tonic clonic seizure while touring [place]. Last drink was around 18 hours ago. Seizure witnessed by . Had tonic phase with LOC. Seizure duration 2 minutes. He was postical afterwards. No history of seizure. Has felt tremulous when he has not had alcohol. Also gets palpitations when he does not have alcohol. On admission his plat were low. AST and ALT were elevated. CT head was Negative. Na and K were low. Neurology consulted for seizure. He denies ilicit drug use. Denies head trauma. Denies recent illness or infection. Denies febrile seizure history. He works in IT. He drink half pint of liqueur 4x per week. Allergies Allergy/AdvReac Type Severity Reaction Status Date / Time No Known Allergies Allergy Verified 08/12/19 20:46 Home Medications Home Medications Medication Instructions Recorded Confirmed Type hydrochlorothiazide 25 mg PO DAILY 08/12/19 08/12/19 History trazodone 50 mg PO HS 08/12/19 08/12/19 History Patient History Medical History Hypertension Mood disorder Family History Other No pertinent family history in first degree relatives Social History Preferred Language: Thai Communication Ability: Effective Beliefs That Will Affect Care: None marital status: Current Living Situation: Spouse and Family Feels Safe at Home: No Is there a partner from a previous relationship who is making you feel unsafe now?: No Any Concerns about Your Family Situation: No Would You Like to Speak to Someone About Your Situation: No Safety Concerns: Feels Safe At This Time Smoking Status: Never smoker Do You Dip or Chew Tobacco: No ; Hx Alcohol Use: Yes Alcohol type: hard liquor Hx Substance Use: No Physical Exam Physical Exam: EXAM: Constitutional: appearance normally developed, well nourished Head and Face: normocephalic and atraumatic Eyes: normal lids, normal conjunctiva, fundi visualized and optic disks normal appearance Neck: supple Respiratory: normal effort Cardiovascular: normal pulses Abdomen: non distended Skin: no rashes, lesions, or ulcers noted Psychiatric: anxious NEUROLOGIC EXAMINATION: Appearance: no acute distress Orientation: awake, alert and oriented x 3 Mental Status: alert Memory: Ok Attention: normal Knowledge: appropriate Language: no aphasia Speech: no dysarthria Cranial Nerves: CN 2 - no visual defect on confrontation and pupils round, equal, reactive to light CN 3, 4, 6 - extra-ocular movements intact and no nystagmus CN 5 - facial sensation intact CN 7 - no facial asymmetry CN 8 - intact hearing CN 9, 10 - palate symmetric CN 11 - good shoulder shrug CN 12 - tongue midline Gait: deferred Coordination: tremulous with outstretched hands, intention tremor bilateral Sensory: intact to light touch Muscle Tone: normal Muscle exam: 5/5 Reflexes: NO ankle clonus Results & Data Vital Signs (Past 12 Hours) Vital Signs Temp Pulse Pulse Resp BP Pulse Ox 08/13/19 07:42 37.3 C 82 20 129/81 97 08/13/19 03:04 37.2 C 64 16 125/78 95 08/13/19 00:26 108 H 08/12/19 22:51 106 H 22 140/88 98 08/12/19 22:30 37.1 C 111 H 20 138/89 97 (1) Alcohol withdrawal Complication of substance-induced condition: with unspecified complication Qualified Code(s): F10.239 - Alcohol dependence with withdrawal, unspecified
[2019-08-13 09:35] LABS: Appearance Urine Clear (Clear); Bilirubin Urine Negative (Negative); Blood Urine Negative (Negative); Color Urine Orange; Glucose Urine UA Negative (Negative); Ketones Urine Negative (Negative); Leukocyte Esterase Urine Negative (Negative); Nitrite Urine Negative (Negative); Protein Urine Negative (Negative); Specific Gravity Urine 1.016 (1.000-1.030); Urobilinogen Urine Negative (Negative)
[2019-08-13 09:53] LABS: Amphetamines+Metham, Urine Neg (Neg); Barbiturates, Urine Neg (Neg); Benzodiazepine, Urine Pos (Neg); Cocaine, Urine Neg (Neg); MDMA (Ecstacy), Urine Neg (Neg); Methadone, Urine Neg (Neg); Opiate, Urine Neg (Neg); Phencyclidine, Urine Neg (Neg)
--- NOTE | 2019-08-13 10:55 | Psychiatric Consultation ---
Date of Consultation August 13, 2019 Impression / Recommendations Impression 48-year-old male admitted medically on 08/12/19 after experiencing a seizure. It is suspected the seizure is secondary to alcohol withdrawal. Psychiatric consultation was requested to evaluate patient for possible depression. Patient endorses several situational stressors that have been ongoing for the past 1 - 1.5 years. He admits to anxiety and sleep difficulties, which he feels contributes to his use of alcohol as a coping mechanism. Although patient admits to depressive symptoms, it is unclear to what extent contributing factor such as his difficult job and alcohol use have been contributing. Ideally, patient would have a significant period of sobriety in order to assess mood removed from the context of substance abuse. Will hold off on initiation of antidepressant medication at this time. Pt does admit that use of trazodone for sleep has been beneficial for the past year, but is no longer as effective as it was initially. After review of risks, benefits, and potential side effects, the patient is agreeable with increasing the dose to 100mg at bedtime. Pt is agreeable to following up with his PCP about the medication, and reports he has an appointment scheduled already. Pt and his appear to be rather motivated to reduce/eliminate alcohol use, and have reported already looking into AA meetings in their area. Pt had previously seen a dual diagnosis counselor, and states he is aware of services that he can utilize after discharge. Pt denies SI/HI, SIB, A/V hallucinations, paranoia and signs/symptoms of acute psychosis. There is no criteria to suggest inpatient psychiatric treatment is indicated. Will continue to follow patient's case during this hospitalization. Appreciate opportunity to participate in the care fo this patient. Dr. Katelyn Carmona was directly involved in review and discussion of the patient's case and participated in medical decision making regarding treatment recommendations. PLAN: 08/13 - Increase trazodone to 100mg at HS, follow-up with PCP after discharge - Pt and motivated to explore AA meetings and D&A counseling in [place] when they return home - No SI/HI, SIB or acute psychosis. No indication for inpatient psychiatric treatment at this time Risk Factors Assessment Do You Have Access To A Gun?: No CPT Code Initial Consultation: 86649 Psych History Identifying Data 48-year-old male admitted medically on 08/12/19 after experiencing a seizure. It is suspected that the seizure was secondary to alcohol withdrawal. Psychiatric consultation is requested to evaluate the patient for suspected depression. Information is gathered from hospital documentation, the patient's , and the himself - the combination of which is considered to be reliable. Chief Complaint "It's probably a combination of 3 things - the drinking, the anxiety or stress of my job, and not being able to sleep." History of Present Illness Fer Young is a 48-year-old male admitted medically on 08/12/19 after experiencing a seizure. It is perceived that this seizure was related to alcohol withdrawal, for which he is now being treated. It is reported that the patient was visiting his daughter, who is a freshman at [employer]. The seizure was observed by family, and he was brought to the ED for evaluation. Psychiatric consultation was requested for suspected depression. Patient's case is reviewed with psychiatric nurse liaison prior to evaluation. Pt was cooperative with interview, and is seen along with his Alyx, whom he requests to have present for the during of the evaluation. Pt states that he believes his seizure was a "combination of 3 things", citing the alcohol use, poor sleep, and increased anxiety as major contributing factors. Pt shares with this provider that he has been experiencing increased anxiety at work over the past 1 - 1.5 years. This stress has been building to the point of him submitting his resignation. Pt states that he and his had discussed this decision and believed it to be best for their family. Pt admits to low mood, but feels this is related to his current situation. He denies hopelessness or suicidal ideation. He states, "I really look forward to the future. We have our future planned, what we want to do when the kids are both in college. We've even started looking at properties." Pt denies significant changes in appetite or energy level. He does endorse difficulty sleeping, primarily sustaining sleep for more than 4 hours. He reports going to bed around 10:30, but waking around 2:15 and being unable to return to sleep due to anxiety and racing thoughts. He denies symptoms consistent with panic attacks, but admits to tachycardia with elevated anxiety level. Pt's states that she has noticed a "slight depression" for the past year, with worsening over the past 6 months. She states "I think the depression led to his drinking issues, it's been a vicious cycle." states that the patient's drinking and poor sleep is suspected to be affecting his memory, as she has noticed mild episodes of confusion at home as well. Pt admits to increased alcohol intake over the past 6 months. He reports consuming 1/2 pint of vodka about 4 days a week. He admits his intent for drinking is to calm anxiety and allow his mind to rest, but denies intent to get intoxicated or black out. Pt denies prior inpatient D&A rehabilitation programs, but did meet with a D&A counselor for 2 sessions over 6 months ago. He and his state they are well aware of resources in their area for D&A treatment - which they prefer to do on an outpatient basis. Pt admits to motivation to abstain from alcohol use, and he is planning to reach out for counseling again. Pt feels comfortable returning to his PCP for medication management, who is also currently prescribing his trazodone. denies safety concerns related to her returning home after discharge. They were both encouraged to reach out with any additional needs or concerns and agreed to this. Pt denies SI, HI, SIB, A/V hallucinations, paranoia, didier/hypomania, other symptoms more suggestive of a bipolar presentation, OCD, PTSD, eating disorder, and other specific psychiatric symptoms. Past Psychiatric History Outpatient Services: None presently; saw a therapist for 2 sessions at home in [place] Previous Psych Admissions: Denies Do You Have Access To A Gun?: No History of Previous Suicide Attempt: No Past Medication Trials: Denies; PCP prescribed trazodone for sleep Allergies Allergy/AdvReac Type Severity Reaction Status Date / Time No Known Allergies Allergy Verified 08/12/19 20:46 Home Medications Home Medications Medication Instructions Recorded Confirmed Type hydrochlorothiazide 25 mg PO DAILY 08/12/19 08/12/19 History trazodone 50 mg PO HS 08/12/19 08/12/19 History Family History Pt suspects that his two brothers have depression. He denies known family history of drug/alcohol abuse or suicide attempts/completion. Substance Abuse History Pt denies tobacco use. Pt reports consuming alcohol about 4x per week, drinking 1/2 pint of vodka on days he partakes. Pt denies use of other illicit substances. Personal History Living Arrangements: Home (with and high school aged son; daughter in college) Born In: Born and raised in [place] Highest Grade Completed: College Employment Status: [employer] Employed (but put in resignation) Marital Status: Number Of Children: 2 - 1 daughter, 1 son (both late teens) Beliefs That Will Affect Care: None History of Legal Problems: Denies Psychological Trauma History Comment: Denies Patient History Medical History Hypertension Mood disorder Family History Other No pertinent family history in first degree relatives Social History Preferred Language: Tamazight Communication Ability: Effective Beliefs That Will Affect Care: None marital status: Current Living Situation: Spouse and Family Feels Safe at Home: No Is there a partner from a previous relationship who is making you feel unsafe now?: No Any Concerns about Your Family Situation: No Would You Like to Speak to Someone About Your Situation: No Safety Concerns: Feels Safe At This Time Smoking Status: Never smoker Do You Dip or Chew Tobacco: No ; Hx Alcohol Use: Yes Alcohol type: hard liquor Hx Substance Use: No Physical Exam Psychiatric: Orientation: alert, oriented x 3 and cooperative (and pleasant) Apperance: appropriately dressed, appropriately groomed and appeared stated age Overweight-appearing male in no acute distress. Pt is appropriately dressed in hospital gown. Grooming and hygiene appear adequate. Eye Contact: good eye contact Motor Behavior: no abnormal motor movements (observed while laying in bed) Speech: normal rate/rhythm/volume of speech Affect: + blunted affect and mood congruent with affect Mood: + anxious mood ("There has been a lot going on at work, and now there is new stress") Thought Process: goal directed thought process, clear/coherent thought process and thought association intact Thought Content: reality based without delusions; no hopelessness and no loneliness Suicidal Thoughts: denies suicidal thoughts, denies suicidal plan and denies suicidal intent Homicidal Thoughts: denies homicidal thoughts Hallucinations: no auditory hallucinations and no visual hallucinations Cognition: remote memory grossly intact, attention grossly intact and language grossly intact Insight: + fair insight Judgement: + fair judgement Vital Signs (Past 24 Hours): Last Vital Signs Temp 37.3 C 08/13/19 07:42 Pulse 82 08/13/19 07:42 Resp 20 08/13/19 07:42 BP 129/81 08/13/19 07:42 Pulse Ox 97 08/13/19 07:42 Review of Systems Constitutional: reports weakness Cardiovascular: denied Respiratory: denied Gastrointestinal: denied Neurological: denied Psychiatric: denies symptoms other than stated above Total of at least 10 systems reviewed, pertinent positives as above and in HPI. Results & Data Medications Administered Folic Acid (Folvite) 1 mg PO QA TRE Stop: 09/12/19 08:59 Last Admin: 08/13/19 08:01 Dose: 1 mg Documented by: [id number] Gabapentin (Neurontin) 600 mg PO Q6H TRE Stop: 08/13/19 12:01 Last Admin: 08/13/19 06:21 Dose: 600 mg Documented by: [id number] Potassium Chloride (K Roland / Wtr) 10 meq in 100 mls @ 100 mls/hr IV Q1H TRE Stop: 08/13/19 11:59 Last Admin: 08/13/19 10:15 Dose: 100 mls/hr Documented by: [id number] Infusion: 08/13/19 10:08 Dose: 100 mls/hr Documented by: [id number] Admin: 08/13/19 09:08 Dose: 100 mls/hr Documented by: [id number] Infusion: 08/13/19 09:00 Dose: 100 mls/hr Documented by: [id number] Admin: 08/13/19 08:00 Dose: 100 mls/hr Documented by: [id number] Sodium Chloride (Nss 1000ml) 1,000 mls @ 125 mls/hr IV .Q8H TRE Stop: 09/12/19 07:59 Last Admin: 08/13/19 08:00 Dose: 125 mls/hr Documented by: [id number] Multivitamins (Multivitamin Tab) 1 tab PO QA TRE Stop: 09/12/19 08:59 Last Admin: 08/13/19 08:01 Dose: 1 tab Documented by: [id number] Thiamine HCl (Vitamin B-1) 100 mg PO QAM TRE Stop: 09/12/19 08:59 Last Admin: 08/13/19 08:01 Dose: 100 mg Documented by: [id number]
[2019-08-13 13:17] LABS: Potassium 3.9 mmol/L (3.5-5.1)
[2019-08-13] MEDS: LORazepam 1 MG TAB PO SCH ×2 (14:08→22:50)
--- NOTE | 2019-08-13 14:47 | Ultrasound Report ---
US liver HISTORY: 48 years-old Male bilirubinemia elevated bilirubin COMPARISON: None available TECHNIQUE: Multiple real-time sonographic images of the abdominal right upper quadrant were obtained assessing grayscale appearance and color flow FINDINGS: Visualized pancreas appears unremarkable. Increased echogenicity of the liver suggests hepatic steato sis. The liver is enlarged measuring up to 20 cm. Hypoechoic avascular region of the left hepatic lob e measures 1.4 x 1.3 x 1.2 cm suggestive of a mildly complex cyst with internal septation. Common ramana e duct is normal, 5 mm. Gallbladder is unremarkable without shadowing cholelithiasis or wall thickeni ng. Imaged right kidney is unremarkable. IMPRESSION: 1. No cholelithiasis or sonographic evidence of acute cholecystitis. 2. Hepatomegaly with hepatic steatosis. 3. No biliary ductal dilation. The above report was generated using voice recognition software. It may contain grammatical, syntax o r spelling errors. Electronically signed by: John Chávez M.D. 08/13/2019 2:46 PM
--- NOTE | 2019-08-13 16:20 | Hospitalist Progress Note ---
Date of Service August 13, 2019 Assessment & Plan (1) Seizure: New onset Secondary to alcohol withdrawal -- Alcohol withdrawal protocol ordered discussed with Dr. Taylor Neurologist, recommend to transition from Gabapentin to Ativan Taper protocol -- continue IV fluids -- seizure precautions monitor and correct electrolyte abnormalities Hypokalemia -- replaced with IV and PO K resolved -- monitor Pancytopenia -- likely from Alcoholism -- no signs of infection, shortness of breath, bleeding -- peripheral smear ordered Possible Depression -- with anxiety -- Psych consulted Trazodone increased to 100mg po daily Hypertension -- stable hold usual HCTZ will order Amlodipine if BP not at goal Elevated Bilirubin, Direct Bilirubinemia Elevated LFTs -- Liver US: IMPRESSION: 1. No cholelithiasis or sonographic evidence of acute cholecystitis. 2. Hepatomegaly with hepatic steatosis. 3. No biliary ductal dilation. -- likely secondary to Alcoholism -- monitor LFTs will need close outpatient follow up Pre-DM -- A1c 5.9 -- monitor as outpatient Disposition pending anticipate d/c home with family support when medically stable DVT prophylaxis. SCDs RE thrombocytopenia Full code Subjective ff up for seizure- likely alcohol withdrawal seen resting, sitting up in bed, pleasant, comfortable states he feels improved compared to yesterday admits to some tremors, anxiety today no hallucinations, sweats denies headache, dizziness, chest pain, dyspnea, palpitations no other symptoms Review of Systems Review of Systems: All systems reviewed & are unremarkable except as noted in HPI & below Physical Exam Physical Exam: General- oriented x 3, not in distress, speaks in sentences with no effort or accessory muscle use Head- atraumatic Eyes- PERRL, EOMI, anicteric ENT- oropharynx clear Neck- supple, no JVD, no adenopathy, no thyromegaly; carotids +2/2, no bruits appreciated Lungs- clear to auscultation bilaterally, no rales/wheezes Heart- normal rate, regular rhythm; no murmur, no gallop, no rub appreciated Abdomen- normal bowel sounds, nondistended, soft, nontender, no masses or hepatosplenomegaly Extremities- no pretibial edema, no calf tenderness; peripheral pulses intact mild tremors Neuro- alert, oriented x 3; CN 2-12 grossly intact; motor 5/5 bilaterally;sensation 100% on all extremities; no other gross focal neurologic deficits Skin- warm & dry Results & Data Vital Signs (Past 12 Hours) Vital Signs Temp Pulse Resp BP Pulse Ox 08/13/19 11:28 37.5 C 91 H 18 136/86 94 08/13/19 07:42 37.3 C 82 20 129/81 97 Laboratory Results Laboratory Results - last 24 hr 08/12/19 08/12/19 08/12/19 19:11 19:11 19:11 WBC 3.81 L RBC 3.65 L Hgb 12.7 L Hct 35.9 L MCV 98.4 MCH 34.8 H MCHC 35.4 RDW Std Deviation 46.8 H RDW Coeff of Juan 13.0 Plt Count 91 L MPV 10.6 H Immature Gran % (Auto) 0.3 Neut % (Auto) 53.0 Lymph % (Auto) 33.1 Gila % (Auto) 12.3 Eos % (Auto) 0.3 Baso % (Auto) 1.0 Reticulocyte % (Auto) Immature Gran # (Auto) 0.01 Neut # (Auto) 2.02 Lymph # (Auto) 1.26 Gila # (Auto) 0.47 Eos # (Auto) 0.01 Baso # (Auto) 0.04 Reticulocyte # Absolute Nucleated RBC Nucleated RBC % (auto) Platelet Estimate Decreased L Giant Platelets Peripher Smr Path Cons PT INR APTT PTT Ratio VBG pH VBG pCO2 VBG pO2 VBG HCO3 VBG O2 Saturation VBG Base Excess Barometric Pressure Sodium 137 Potassium 3.4 L Chloride 95 L Carbon Dioxide 21 Anion Gap 21.0 H BUN 10 Creatinine 1.18 Est Cr Clr Drug Dosing 76.6 Est GFR ( Amer) 84.1 Est GFR (Non-Af Amer) 72.5 BUN/Creatinine Ratio 8.1 L Glucose 178 H Estimat Average Glucose Hemoglobin A1c Lactate Calcium 8.9 Phosphorus Magnesium 1.7 L Iron TIBC Transferrin Ferritin Total Bilirubin 1.5 H Direct Bilirubin AST 560 H ALT 262 H Alkaline Phosphatase 107 Troponin I < 0.015 Total Protein 8.1 Albumin 3.8 Globulin 4.3 H Albumin/Globulin Ratio 0.9 Vitamin B12 Folate Procalcitonin TSH 1.360 Urine Color Urine Appearance Urine pH Ur Specific [place] Urine Protein Urine Glucose (UA) Urine Ketones Urine Blood Urine Nitrite Urine Bilirubin Urine Urobilinogen Ur Leukocyte Esterase Urine Opiates Screen Ur Methadone, Qual Urine Barbiturates Ur Phencyclidine (PCP) U Amphetamin/Meth Scrn MDMA (Ecstasy) Screen U OH-Alprazolam Confrm U Benzodiazepines Scrn 7-Amino Clonazepam Ur Nordiazepam Confirm U OH-ethylflurazepam U Lorazepam Cnf GC/MS U Oxazepam Confm GC/MS Ur Temazepam Confirm U OH-Triazolam Confirm U OH-Midazolam Confirm Ur Cocaine Metabolite U Marijuana (THC) Screen U Marijuana THC Carboxy Ethyl Alcohol mg/dL Anaplasma Smear See Comment Lyme Disease IgG Ab Negative Lyme Disease IgM Ab Negative Blood Type Antibody Screen 08/12/19 08/12/19 08/12/19 19:11 19:11 20:13 WBC RBC Hgb Hct MCV MCH MCHC RDW Std Deviation RDW Coeff of Juan Plt Count MPV Immature Gran % (Auto) Neut % (Auto) Lymph % (Auto) Gila % (Auto) Eos % (Auto) Baso % (Auto) Reticulocyte % (Auto) Immature Gran # (Auto) Neut # (Auto) Lymph # (Auto) Gila # (Auto) Eos # (Auto) Baso # (Auto) Reticulocyte # Absolute Nucleated RBC Nucleated RBC % (auto) Platelet Estimate Giant Platelets Peripher Smr Path Cons PT 11.3 INR 1.1 APTT 23.4 PTT Ratio 0.9 VBG pH VBG pCO2 VBG pO2 VBG HCO3 VBG O2 Saturation VBG Base Excess Barometric Pressure Sodium Potassium Chloride Carbon Dioxide Anion Gap BUN Creatinine Est Cr Clr Drug Dosing Est GFR ( Amer) Est GFR (Non-Af Amer) BUN/Creatinine Ratio Glucose Estimat Average Glucose Hemoglobin A1c Lactate Calcium Phosphorus Magnesium Iron TIBC Transferrin Ferritin Total Bilirubin Direct Bilirubin AST ALT Alkaline Phosphatase Troponin I Total Protein Albumin Globulin Albumin/Globulin Ratio Vitamin B12 Folate Procalcitonin 0.21 TSH Urine Color Urine Appearance Urine pH Ur Specific [place] Urine Protein Urine Glucose (UA) Urine Ketones Urine Blood Urine Nitrite Urine Bilirubin Urine Urobilinogen Ur Leukocyte Esterase Urine Opiates Screen Ur Methadone, Qual Urine Barbiturates Ur Phencyclidine (PCP) U Amphetamin/Meth Scrn MDMA (Ecstasy) Screen U OH-Alprazolam Confrm U Benzodiazepines Scrn 7-Amino Clonazepam Ur Nordiazepam Confirm U OH-ethylflurazepam U Lorazepam Cnf GC/MS U Oxazepam Confm GC/MS Ur Temazepam Confirm U OH-Triazolam Confirm U OH-Midazolam Confirm Ur Cocaine Metabolite U Marijuana (THC) Screen U Marijuana THC Carboxy Ethyl Alcohol mg/dL < 3.0 Anaplasma Smear Lyme Disease IgG Ab Lyme Disease IgM Ab Blood Type Antibody Screen 08/12/19 08/12/19 08/12/19 21:28 21:28 21:28 WBC RBC Hgb Hct MCV MCH MCHC RDW Std Deviation RDW Coeff of Juan Plt Count MPV Immature Gran % (Auto) Neut % (Auto) Lymph % (Auto) Gila % (Auto) Eos % (Auto) Baso % (Auto) Reticulocyte % (Auto) Immature Gran # (Auto) Neut # (Auto) Lymph # (Auto) Gila # (Auto) Eos # (Auto) Baso # (Auto) Reticulocyte # Absolute Nucleated RBC Nucleated RBC % (auto) Platelet Estimate Giant Platelets Peripher Smr Path Cons PT INR APTT PTT Ratio VBG pH 7.48 H VBG pCO2 43 VBG pO2 34 VBG HCO3 31 VBG O2 Saturation 65.9 VBG Base Excess 7.2 Barometric Pressure 733.7 Sodium Potassium Chloride Carbon Dioxide Anion Gap BUN Creatinine Est Cr Clr Drug Dosing Est GFR ( Amer) Est GFR (Non-Af Amer) BUN/Creatinine Ratio Glucose Estimat Average Glucose 123 Hemoglobin A1c 5.9 H Lactate 2.0 Calcium Phosphorus Magnesium Iron TIBC Transferrin Ferritin Total Bilirubin Direct Bilirubin AST ALT Alkaline Phosphatase Troponin I Total Protein Albumin Globulin Albumin/Globulin Ratio Vitamin B12 Folate Procalcitonin TSH Urine Color Urine Appearance Urine pH Ur Specific [place] Urine Protein Urine Glucose (UA) Urine Ketones Urine Blood Urine Nitrite Urine Bilirubin Urine Urobilinogen Ur Leukocyte Esterase Urine Opiates Screen Ur Methadone, Qual Urine Barbiturates Ur Phencyclidine (PCP) U Amphetamin/Meth Scrn MDMA (Ecstasy) Screen U OH-Alprazolam Confrm U Benzodiazepines Scrn 7-Amino Clonazepam Ur Nordiazepam Confirm U OH-ethylflurazepam U Lorazepam Cnf GC/MS U Oxazepam Confm GC/MS Ur Temazepam Confirm U OH-Triazolam Confirm U OH-Midazolam Confirm Ur Cocaine Metabolite U Marijuana (THC) Screen U Marijuana THC Carboxy Ethyl Alcohol mg/dL Anaplasma Smear Lyme Disease IgG Ab Lyme Disease IgM Ab Blood Type Antibody Screen 08/13/19 08/13/19 08/13/19 06:10 06:10 06:10 WBC 2.85 L RBC 3.19 L Hgb 10.9 L Hct 31.5 L MCV 98.7 MCH 34.2 H MCHC 34.6 RDW Std Deviation 47.2 H RDW Coeff of Juan 13.0 Plt Count 64 L MPV 10.3 Immature Gran % (Auto) 0.0 Neut % (Auto) 53.0 Lymph % (Auto) 27.0 Gila % (Auto) 18.9 Eos % (Auto) 0.4 Baso % (Auto) 0.7 Reticulocyte % (Auto) 1.0 Immature Gran # (Auto) 0.00 Neut # (Auto) 1.51 Lymph # (Auto) 0.77 L Gila # (Auto) 0.54 Eos # (Auto) 0.01 Baso # (Auto) 0.02 Reticulocyte # 0.03 Absolute Nucleated RBC 0.00 Nucleated RBC % (auto) 0.0 Platelet Estimate Giant Platelets 1+ Peripher Smr Path Cons Pending PT INR APTT PTT Ratio VBG pH VBG pCO2 VBG pO2 VBG HCO3 VBG O2 Saturation VBG Base Excess Barometric Pressure Sodium 135 L Potassium 3.1 L Chloride 99 Carbon Dioxide 31 Anion Gap 5.0 BUN 10 Creatinine 0.88 D Est Cr Clr Drug Dosing 102.7 Est GFR ( Amer) 117.7 Est GFR (Non-Af Amer) 101.6 BUN/Creatinine Ratio 10.8 Glucose 87 Estimat Average Glucose Hemoglobin A1c Lactate Calcium 8.4 L Phosphorus Magnesium 2.3 Iron 144 TIBC 233 L Transferrin 187 L Ferritin 2989.0 H Total Bilirubin 2.1 H Direct Bilirubin AST 428 H ALT 201 H Alkaline Phosphatase 89 Troponin I Total Protein 6.6 Albumin 3.1 L Globulin 3.5 Albumin/Globulin Ratio 0.9 Vitamin B12 Folate Procalcitonin TSH Urine Color Urine Appearance Urine pH Ur Specific [place] Urine Protein Urine Glucose (UA) Urine Ketones Urine Blood Urine Nitrite Urine Bilirubin Urine Urobilinogen Ur Leukocyte Esterase Urine Opiates Screen Ur Methadone, Qual Urine Barbiturates Ur Phencyclidine (PCP) U Amphetamin/Meth Scrn MDMA (Ecstasy) Screen U OH-Alprazolam Confrm U Benzodiazepines Scrn 7-Amino Clonazepam Ur Nordiazepam Confirm U OH-ethylflurazepam U Lorazepam Cnf GC/MS U Oxazepam Confm GC/MS Ur Temazepam Confirm U OH-Triazolam Confirm U OH-Midazolam Confirm Ur Cocaine Metabolite U Marijuana (THC) Screen U Marijuana THC Carboxy Ethyl Alcohol mg/dL Anaplasma Smear Lyme Disease IgG Ab Lyme Disease IgM Ab Blood Type A Positive Antibody Screen NEGATIVE 08/13/19 08/13/19 08/13/19 06:10 06:10 06:10 WBC RBC Hgb Hct MCV MCH MCHC RDW Std Deviation RDW Coeff of Juan Plt Count MPV Immature Gran % (Auto) Neut % (Auto) Lymph % (Auto) Gila % (Auto) Eos % (Auto) Baso % (Auto) Reticulocyte % (Auto) Immature Gran # (Auto) Neut # (Auto) Lymph # (Auto) Gila # (Auto) Eos # (Auto) Baso # (Auto) Reticulocyte # Absolute Nucleated RBC Nucleated RBC % (auto) Platelet Estimate Giant Platelets Peripher Smr Path Cons Cancelled PT INR APTT PTT Ratio VBG pH VBG pCO2 VBG pO2 VBG HCO3 VBG O2 Saturation VBG Base Excess Barometric Pressure Sodium Potassium Chloride Carbon Dioxide Anion Gap BUN Creatinine Est Cr Clr Drug Dosing Est GFR ( Amer) Est GFR (Non-Af Amer) BUN/Creatinine Ratio Glucose Estimat Average Glucose Hemoglobin A1c Lactate Calcium Phosphorus 3.3 Magnesium Iron TIBC Transferrin Ferritin Total Bilirubin Direct Bilirubin 0.8 H AST ALT Alkaline Phosphatase Troponin I Total Protein Albumin Globulin Albumin/Globulin Ratio Vitamin B12 719 Folate > 24.00 Procalcitonin TSH Urine Color Urine Appearance Urine pH Ur Specific [place] Urine Protein Urine Glucose (UA) Urine Ketones Urine Blood Urine Nitrite Urine Bilirubin Urine Urobilinogen Ur Leukocyte Esterase Urine Opiates Screen Ur Methadone, Qual Urine Barbiturates Ur Phencyclidine (PCP) U Amphetamin/Meth Scrn MDMA (Ecstasy) Screen U OH-Alprazolam Confrm U Benzodiazepines Scrn 7-Amino Clonazepam Ur Nordiazepam Confirm U OH-ethylflurazepam U Lorazepam Cnf GC/MS U Oxazepam Confm GC/MS Ur Temazepam Confirm U OH-Triazolam Confirm U OH-Midazolam Confirm Ur Cocaine Metabolite U Marijuana (THC) Screen U Marijuana THC Carboxy Ethyl Alcohol mg/dL Anaplasma Smear Lyme Disease IgG Ab Lyme Disease IgM Ab Blood Type Antibody Screen 08/13/19 08/13/19 08/13/19 08:50 08:50 08:50 WBC RBC Hgb Hct MCV MCH MCHC RDW Std Deviation RDW Coeff of Juan Plt Count MPV Immature Gran % (Auto) Neut % (Auto) Lymph % (Auto) Gila % (Auto) Eos % (Auto) Baso % (Auto) Reticulocyte % (Auto) Immature Gran # (Auto) Neut # (Auto) Lymph # (Auto) Gila # (Auto) Eos # (Auto) Baso # (Auto) Reticulocyte # Absolute Nucleated RBC Nucleated RBC % (auto) Platelet Estimate Giant Platelets Peripher Smr Path Cons PT INR APTT PTT Ratio VBG pH VBG pCO2 VBG pO2 VBG HCO3 VBG O2 Saturation VBG Base Excess Barometric Pressure Sodium Potassium Chloride Carbon Dioxide Anion Gap BUN Creatinine Est Cr Clr Drug Dosing Est GFR ( Amer) Est GFR (Non-Af Amer) BUN/Creatinine Ratio Glucose Estimat Average Glucose Hemoglobin A1c Lactate Calcium Phosphorus Magnesium Iron TIBC Transferrin Ferritin Total Bilirubin Direct Bilirubin AST ALT Alkaline Phosphatase Troponin I Total Protein Albumin Globulin Albumin/Globulin Ratio Vitamin B12 Folate Procalcitonin TSH Urine Color [place] Urine Appearance Clear Urine pH 7.0 Ur Specific [place] 1.016 Urine Protein Negative Urine Glucose (UA) Negative Urine Ketones Negative Urine Blood Negative Urine Nitrite Negative Urine Bilirubin Negative Urine Urobilinogen Negative Ur Leukocyte Esterase Negative Urine Opiates Screen Neg Ur Methadone, Qual Neg Urine Barbiturates Neg Ur Phencyclidine (PCP) Neg U Amphetamin/Meth Scrn Neg MDMA (Ecstasy) Screen Neg U OH-Alprazolam Confrm Pending U Benzodiazepines Scrn Pos H 7-Amino Clonazepam Pending Ur Nordiazepam Confirm Pending U OH-ethylflurazepam Pending U Lorazepam Cnf GC/MS Pending U Oxazepam Confm GC/MS Pending Ur Temazepam Confirm Pending U OH-Triazolam Confirm Pending U OH-Midazolam Confirm Pending Ur Cocaine Metabolite Neg U Marijuana (THC) Screen Pos H U Marijuana THC Carboxy Pending Ethyl Alcohol mg/dL Anaplasma Smear Lyme Disease IgG Ab Lyme Disease IgM Ab Blood Type Antibody Screen 08/13/19 12:38 WBC RBC Hgb Hct MCV MCH MCHC RDW Std Deviation RDW Coeff of Juan Plt Count MPV Immature Gran % (Auto) Neut % (Auto) Lymph % (Auto) Gila % (Auto) Eos % (Auto) Baso % (Auto) Reticulocyte % (Auto) Immature Gran # (Auto) Neut # (Auto) Lymph # (Auto) Gila # (Auto) Eos # (Auto) Baso # (Auto) Reticulocyte # Absolute Nucleated RBC Nucleated RBC % (auto) Platelet Estimate Giant Platelets Peripher Smr Path Cons PT INR APTT PTT Ratio VBG pH VBG pCO2 VBG pO2 VBG HCO3 VBG O2 Saturation VBG Base Excess Barometric Pressure Sodium Potassium 3.9 D Chloride Carbon Dioxide Anion Gap BUN Creatinine Est Cr Clr Drug Dosing Est GFR ( Amer) Est GFR (Non-Af Amer) BUN/Creatinine Ratio Glucose Estimat Average Glucose Hemoglobin A1c Lactate Calcium Phosphorus Magnesium 2.0 Iron TIBC Transferrin Ferritin Total Bilirubin Direct Bilirubin AST ALT Alkaline Phosphatase Troponin I Total Protein Albumin Globulin Albumin/Globulin Ratio Vitamin B12 Folate Procalcitonin TSH Urine Color Urine Appearance Urine pH Ur Specific [place] Urine Protein Urine Glucose (UA) Urine Ketones Urine Blood Urine Nitrite Urine Bilirubin Urine Urobilinogen Ur Leukocyte Esterase Urine Opiates Screen Ur Methadone, Qual Urine Barbiturates Ur Phencyclidine (PCP) U Amphetamin/Meth Scrn MDMA (Ecstasy) Screen U OH-Alprazolam Confrm U Benzodiazepines Scrn 7-Amino Clonazepam Ur Nordiazepam Confirm U OH-ethylflurazepam U Lorazepam Cnf GC/MS U Oxazepam Confm GC/MS Ur Temazepam Confirm U OH-Triazolam Confirm U OH-Midazolam Confirm Ur Cocaine Metabolite U Marijuana (THC) Screen U Marijuana THC Carboxy Ethyl Alcohol mg/dL Anaplasma Smear Lyme Disease IgG Ab Lyme Disease IgM Ab Blood Type Antibody Screen
[2019-08-13] MEDS ORDERED: TRAZODONE HCL 50 MG TAB PO SCH (21:00)
[2019-08-13] MEDS ORDERED: TRAZODONE HCL 100 MG TAB PO SCH (21:00)
[2019-08-13] MEDS ORDERED: GABAPENTIN 600 MG TAB PO SCH (22:00)
[2019-08-14] MEDS: SODIUM CHLORIDE 0.9% 1000ML 1,000 ML IV SCH ×3 (00:28→11:39)
[2019-08-14] MEDS: LORazepam 1 MG TAB PO SCH (05:27)
[2019-08-14] MEDS: FOLIC ACID 1 MG TAB PO SCH (09:17)
[2019-08-14] MEDS: MULTIVITAMIN TAB PO SCH (09:17)
[2019-08-14] MEDS: THIAMINE HCL 100 MG TAB PO SCH (09:17)
[2019-08-14] MEDS: LORazepam 2 MG/4 ML VIAL IV PRN ×2 (09:42→11:11)
[2019-08-14 10:14] LABS: Hematocrit (blood only) 33.9 % (42-52); Hemoglobin 11.4 g/dL (14.0-18.0); Mean Corpuscular Hemoglobin 33.8 pg (25-34); Mean Corpuscular Hgb Conc 33.6 g/dL (32-36); Mean Corpuscular Volume 100.6 fL (80-100); RDW Coefficient of Variation 12.8 % (11.5-14.5); RDW Standard Deviation 46.8 fL (36.4-46.3); Red Blood Count 3.37 M/uL (4.7-6.1); White Blood Count 2.96 K/uL (4.8-10.8)
[2019-08-14] MEDS ORDERED: chlordiazePOXIDE HCl 25 MG CAP PO ONE (10:17)
--- NOTE | 2019-08-14 10:21 | Hospitalist Progress Note ---
Date of Service August 14, 2019 Assessment & Plan (1) Seizure: New onset Secondary to alcohol withdrawal -- Alcohol withdrawal protocol ordered discussed with Dr. Taylor Neurologist, recommend to transition from Gabapentin to Ativan Taper protocol 08/14/2019 Patient exhibiting signs of early delirium tremens Discussed with Dr. Cervantes, will transfer patient to the intensive care unit for further management and closer monitoring 1 dose of Librium p.o. ordered, PRN Ativan Discussed with intensive care service under Dr. Gabriel Hypokalemia -- replaced with IV and PO K resolved -- monitor Pancytopenia -- likely from Alcoholism -- no signs of infection, shortness of breath, bleeding -- peripheral smear ordered Possible Depression -- with anxiety -- Psych consulted Trazodone increased to 100mg po daily Hypertension -- stable hold usual HCTZ will order Amlodipine if BP not at goal Elevated Bilirubin, Direct Bilirubinemia Elevated LFTs -- Liver US: IMPRESSION: 1. No cholelithiasis or sonographic evidence of acute cholecystitis. 2. Hepatomegaly with hepatic steatosis. 3. No biliary ductal dilation. -- likely secondary to Alcoholism --Slightly increased today, monitor will need close outpatient follow up Pre-DM -- A1c 5.9 -- monitor as outpatient Disposition pending anticipate d/c home with family support when medically stable DVT prophylaxis. SCDs RE thrombocytopenia Full code Discussed case and plan of care with patient's at bedside All questions answered She is comfortable, understanding, agreeable with the plan of care Subjective Follow-up for alcohol withdrawal seizures Noted to disoriented, anxious as per RN Seen with patient's at the bedside Patient is awake and alert but disoriented, tries to get up from his bed, with mild tremors noted Denies headache, dizziness, chest pain, shortness of breath abdominal pain, nausea No other symptoms Review of Systems Review of Systems: All systems reviewed & are unremarkable except as noted in HPI & below Physical Exam Physical Exam: General- oriented x 1, not in distress, speaks in sentences with no effort or accessory muscle use Appears anxious Eyes- anicteric Neck- no JVD Lungs- clear breath sounds bilaterally, no crackles, no wheezing Heart-tachycardia, regular rhythm; no murmurs Abdomen- normal bowel sounds, nondistended, soft, nontender Extremities- no pretibial edema, no calf tenderness Positive mild tremors Neuro- alert, oriented x1; no gross focal neurologic deficits Skin- warm & dry Results & Data Vital Signs (Past 12 Hours) Vital Signs Temp Pulse Resp BP BP Pulse Ox 08/14/19 08:05 36.9 C 95 H 20 154/94 H 94 08/14/19 04:25 37.7 C H 88 20 125/80 97 08/13/19 23:00 37.7 C H 74 20 152/86 H 97 Laboratory Results Laboratory Results - last 24 hr 08/14/19 08/14/19 09:57 09:57 WBC 2.96 L RBC 3.37 L Hgb 11.4 L Hct 33.9 L MCV 100.6 H MCH 33.8 MCHC 33.6 RDW Std Deviation 46.8 H RDW Coeff of Juan 12.8 Plt Count 86 L MPV 11.1 H Immature Gran % (Auto) 0.3 Neut % (Auto) 57.4 Lymph % (Auto) 26.7 Kay % (Auto) 12.8 Eos % (Auto) 1.4 Baso % (Auto) 1.4 Immature Gran # (Auto) 0.01 Neut # (Auto) 1.70 Lymph # (Auto) 0.79 L Kay # (Auto) 0.38 Eos # (Auto) 0.04 Baso # (Auto) 0.04 Sodium 135 L Potassium 3.9 Chloride 103 Carbon Dioxide 25 Anion Gap 7.0 BUN 8 Creatinine 0.85 Est Cr Clr Drug Dosing 106.3 Est GFR ( Amer) 119.4 Est GFR (Non-Af Amer) 103.0 BUN/Creatinine Ratio 9.2 L Glucose 96 Calcium 8.6 Magnesium 1.9 Total Bilirubin 2.1 H Direct Bilirubin 0.8 H AST 482 H ALT 242 H Alkaline Phosphatase 101 Total Protein 7.4 Albumin 3.6
[2019-08-14 10:37] LABS: Albumin Level 3.6 gm/dl (3.4-5.0); BUN Creatinine Ratio 9.2 (10-20); Basophils # (auto) 0.04 K/uL (0-0.2); Basophils % (auto) 1.4 %; Bilirubin Direct 0.8 mg/dl (0-0.2); Calcium 8.6 mg/dl (8.5-10.1); Creatinine Clr Calc Pharmacy 106.3 ml/min; Eosinophils # (auto) 0.04 K/uL (0-0.5); Eosinophils % (auto) 1.4 %; Est GFR (African American) 119.4; Immature Granulocytes # (auto) 0.01 K/uL (0.00-0.02); Immature Granulocytes % (auto) 0.3 %; Lymphocytes # (auto) 0.79 K/uL (1.2-3.4); Lymphocytes % (auto) 26.7 %; Magnesium 1.9 mg/dl (1.8-2.4); Mean Platelet Volume 11.1 fL (7.4-10.4); Monocytes # (auto) 0.38 K/uL (0.11-0.59); Monocytes % (auto) 12.8 %; Neutrophils % (auto) 57.4 %; Platelet Count 86 K/uL (130-400); Potassium 3.9 mmol/L (3.5-5.1)
[2019-08-14 10:40] LABS: Bilirubin,Total 2.1 mg/dl (0.2-1); Total Protein 7.4 gm/dl (6.4-8.2)
[2019-08-14] MEDS ORDERED: PHENOBARBITAL SODIUM IV ONE (12:00)
[2019-08-14] MEDS ORDERED: MIDAZOLAM HCL 5 MG/ML VIAL IV ONE (12:33)
[2019-08-14] MEDS ORDERED: ROCURONIUM BROMIDE 10 MG/ML 10 ML VIAL IV ONE (12:33)
[2019-08-14] MEDS ORDERED: VECURONIUM BROMIDE 10 MG VIAL IV ONE (12:33)
[2019-08-14] MEDS ORDERED: KETAMINE HCL INJ 50 MG/ML 10 ML VIAL IV ONE (12:33)
[2019-08-14] MEDS ORDERED: SUCCINYLCHOLINE CHLORIDE 20 MG/ML 10 ML VIAL IV ONE (12:33)
--- NOTE | 2019-08-14 12:41 | Neurology Progress Note ---
Date of Service August 14, 2019 Assessment & Plan (1) Alcohol withdrawal: A 48 year old Male with alcohol use disorder admitted s/p an alcohol withdrawal seizure. Last drink was on evening last week. Patient reports he was consuming 1/2 pint or more of vodka almost daily. Patient a gitated and confused this morning. Requiring extra PRN IV ativan. He is hallucinating. Blood pressures elevated and tachycardic. Will arrange transfer to ICU. Alcohol Withdrawal / Delirium Tremens - Recommend transfer to ICU for more aggressive alcohol detox protocol. Discussed with Dr. Gabriel and will start phenobarbital protocol for alcohol withdrawal syndrome. Appreciate assistance. - Seizure precautions - Continue IV thiamine and IV fluids Neurology will continue to follow. (2) Seizure: Subjective Patient was seen and examined. at bedside. Patient standing by bed. He is confused and appears anxious. Believes he is in [place]. He has required Ativan PRN due to EtOH withdrawal and agitation. reports he is hallucinating. Physical Exam Physical Exam: EXAM: Constitutional: appears acutely ill, anxious Head and Face: normocephalic and atraumatic Eyes: normal lids, normal conjunctiva, fundi visualized and optic disks normal appearance Neck: supple Respiratory: normal effort Cardiovascular: normal pulses Abdomen: non distended Skin: no rashes, lesions, or ulcers noted Psychiatric: anxious NEUROLOGIC EXAMINATION: Appearance: no acute distress Orientation: awake, alert and disoriented to place and situation Mental Status: alert Memory: Poor Attention: decreased Knowledge: Poor Language: no aphasia Speech: no dysarthria Cranial Nerves: CN 2 - no visual defect on confrontation and pupils round, equal, reactive to light CN 3, 4, 6 - extra-ocular movements intact and no nystagmus CN 5 - facial sensation intact CN 7 - no facial asymmetry CN 8 - intact hearing CN 9, 10 - palate symmetric CN 11 - good shoulder shrug CN 12 - tongue midline Gait: ambulates without assistance Coordination: tremulous with outstretched hands, mild intention tremor bilateral Sensory: intact to light touch Muscle Tone: normal Muscle exam: 5/5 throughout, no focal weakness Results & Data Vital Signs (Past 12 Hours) Vital Signs Temp Pulse Resp BP BP Pulse Ox 08/14/19 11:05 37.1 C 104 H 28 H 147/94 H 96 08/14/19 08:05 36.9 C 95 H 20 154/94 H 94 08/14/19 04:25 37.7 C H 88 20 125/80 97 (1) Alcohol withdrawal Complication of substance-induced condition: with unspecified complication Qualified Code(s): F10.239 - Alcohol dependence with withdrawal, unspecified
[2019-08-14] MEDS ORDERED: HALOPERIDOL LACTATE 5 MG/ML 1 ML VIAL IM STA (12:51)
[2019-08-14] MEDS ORDERED: LORazepam 2 MG/ML VIAL (IM USE) IM STA (12:51)
[2019-08-14] MEDS ORDERED: DiphenhydrAMINE HCL 50 MG/ML VIAL IM STA (12:51)
[2019-08-14] MEDS ORDERED: HALOPERIDOL LACTATE 5 MG/ML 1 ML VIAL ONE (12:52)
[2019-08-14] MEDS ORDERED: LORazepam 2 MG/4 ML VIAL ONE (12:52)
[2019-08-14] MEDS ORDERED: DiphenhydrAMINE HCL 50 MG/ML VIAL ONE (12:52)
[2019-08-14] MEDS ORDERED: ENOXAPARIN INJ 40 MG/0.4 ML SYR SQ ONE (13:11)
--- NOTE | 2019-08-14 13:12 | Critical Care Consultation ---
Date of Consultation August 14, 2019 Assessment & Plan (1) Alcohol withdrawal delirium, acute, hyperactive: Reason Critically Ill: Acute agitated alcohol withdrawal delirium PLAN: Neuro: Acute encephalopathy -Acute alcohol withdrawal delirium hyperactive -Phenobarbital withdrawal ordered -Benadryl, Ativan, Haldol for acute exacerbation of delirium -Physical restraint as we achieve chemical control CV: Hypertension -Hydrochlorothiazide: Holding at this time Tachycardia -Related to alcohol withdrawal Fluids/Renal: Maintenance fluids -80 mils per hour Normosol GI/Nutrition: Transaminitis -Likely alcoholic hepatitis -Hepatitis panel Heme: Pancytopenia -Bone marrow suppression secondary to alcohol use DVT prophylaxis: Lovenox Endocrine: ICU hyperglycemia protocol Vascular access: Peripheral IVs Code Status: Full code Present on Admission?: No History of Present Illness Attending Physician: Ben Alcala MD I have been requested to evaluate the patient for possible alcohol withdrawal. History is obtained from prior records as well as conversations with the hospitalist as well as neurologist. Patient had a presumptive new onset seizure which may be secondary to heavy alcohol consumption. Since his last alcohol drink approximately 4 days ago he has had increasing agitation, systolic blood pressure, tachycardia consistent with delirium tremens. During my evaluation the patient was combative, not redirectable to verbal requests and attempts at de-escalation. He required additional sedative medication and initiation of phenobarbital or agitated delirium control. Patient was combative, requiring physical redirection. Allergies Allergy/AdvReac Type Severity Reaction Status Date / Time No Known Allergies Allergy Verified 08/12/19 20:46 Home Medications Home Medications Medication Instructions Recorded Confirmed Type hydrochlorothiazide 25 mg PO DAILY 08/12/19 08/12/19 History trazodone 50 mg PO HS 08/12/19 08/12/19 History Patient History Medical History Hypertension Mood disorder Family History Other No pertinent family history in first degree relatives Social History Preferred Language: Guatemalan Communication Ability: Effective Beliefs That Will Affect Care: None marital status: Current Living Situation: Spouse and Family Feels Safe at Home: No Is there a partner from a previous relationship who is making you feel unsafe now?: No Any Concerns about Your Family Situation: No Would You Like to Speak to Someone About Your Situation: No Safety Concerns: Feels Safe At This Time Smoking Status: Never smoker Do You Dip or Chew Tobacco: No ; Hx Alcohol Use: Yes Alcohol type: hard liquor Hx Substance Use: No Review of Systems Review of Systems: Unobtainable due to reduced consciousness (Unable to obtain due to acute agitated delirium) Physical Exam Physical Exam: General: Well-nourished male appears his stated age I have reviewed the recorded vital signs Neurological: RASS score: 2, Moves all 4 extremities, Psychological: Glascow Coma Scale: Eyes: 4, Verbal 4, Motor 6, Total 14 not complying with requests Eyes: Pupils are equal, round and reactive to light, anicteric sclera. Symmetrical lids. HENT: Oropharynx Clear, moist Mucous Membranes. Neck: Supple. Symmetric. trachea midline. No thyromegaly. Cardiovascular: Normal peripheral perfusion. Distal pulses and capillary refill intact. No JVD. Tachycardia Respiratory: Respirations are non-labored, no accessory muscle use. Breath sounds are equal. Gastrointestinal: Soft. Non-distended. Lymphatic: No cervical lymphadenopathy. Musculoskeletal: No deformity. No clubbing nor cyanosis. Results & Data Vital Signs (Past 12 Hours) Vital Signs Temp Pulse Resp BP BP Pulse Ox 08/14/19 11:05 37.1 C 104 H 28 H 147/94 H 96 08/14/19 08:05 36.9 C 95 H 20 154/94 H 94 08/14/19 04:25 37.7 C H 88 20 125/80 97 Laboratory Results 08/14/19 08/14/19 08/13/19 Range/Units 09:57 09:57 12:38 WBC 2.96 L (4.8-10.8) K/uL RBC 3.37 L (4.7-6.1) M/uL Hgb 11.4 L (14.0-18.0) g/dL Hct 33.9 L (42-52) % MCV 100.6 H (80-100) fL MCH 33.8 (25-34) pg MCHC 33.6 (32-36) g/dL RDW Std Deviation 46.8 H (36.4-46.3) fL RDW Coeff of Juan 12.8 (11.5-14.5) % Plt Count 86 L (130-400) K/uL MPV 11.1 H (7.4-10.4) fL Immature Gran % (Auto) 0.3 % Neut % (Auto) 57.4 % Lymph % (Auto) 26.7 % [place] % (Auto) 12.8 % Eos % (Auto) 1.4 % Baso % (Auto) 1.4 % Immature Gran # (Auto) 0.01 (0.00-0.02) K/uL Neut # (Auto) 1.70 (1.4-6.5) K/uL Lymph # (Auto) 0.79 L (1.2-3.4) K/uL [place] # (Auto) 0.38 (0.11-0.59) K/uL Eos # (Auto) 0.04 (0-0.5) K/uL Baso # (Auto) 0.04 (0-0.2) K/uL Sodium 135 L (136-145) mmol/L Potassium 3.9 3.9 D (3.5-5.1) mmol/L Chloride 103 (98-107) mmol/L Carbon Dioxide 25 (21-32) mmol/L Anion Gap 7.0 (3-11) BUN 8 (7-18) mg/dl Creatinine 0.85 (0.6-1.4) mg/dl Est Cr Clr Drug Dosing 106.3 ml/min Est GFR ( Amer) 119.4 Est GFR (Non-Af Amer) 103.0 BUN/Creatinine Ratio 9.2 L (10-20) Glucose 96 (70-99) mg/dl Calcium 8.6 (8.5-10.1) mg/dl Magnesium 1.9 2.0 (1.8-2.4) mg/dl Total Bilirubin 2.1 H (0.2-1) mg/dl Direct Bilirubin 0.8 H (0-0.2) mg/dl AST 482 H (15-37) U/L ALT 242 H (12-78) U/L Alkaline Phosphatase 101 (45-117) U/L Total Protein 7.4 (6.4-8.2) gm/dl Albumin 3.6 (3.4-5.0) gm/dl PG Care Time/CCT Total # of Minutes Spent Total Time Spent with Patient: Total time spent is greater than 50% in coordination of care (as documented) at patient's floor/unit and/or counseling patient: Critical Care Time: Yes Total Critical Care Time: 50 I have personally spent 50 minutes of critical care time in the direct management of this patient. This is a life/limb threatening event. This includes time spent evaluating patient, direct bedside care, chart review, placing orders, interpretation of diagnostic studies, discussion with consultants, patient, and/or family members regarding treatment decisions, as well as other required patient management activities. This time is exclusive of all separately billable procedures, and teaching time and separate from and in addition to any other critical care service time.
[2019-08-14] MEDS ORDERED: NORMOSOL-R 1,000 ML IV SCH (13:15)
[2019-08-14] MEDS ORDERED: PHENOBARBITAL SODIUM IV SCH ×2 (15:00→18:00)
[2019-08-14] MEDS: PHENobarbital sodium 130 MG/ML VIAL IV PRN ×2 (16:32→17:59)
[2019-08-14] MEDS ORDERED: PHENobarbitaL sodium 65 MG in SYRINGE 0 ML IV SCH (18:00)
[2019-08-14] MEDS ORDERED: RAPID SEQUENCE INDUCTION BAG ONE (18:04)
[2019-08-14] MEDS: MIDAZOLAM HCL 125 MG/250 ML BAG IV SCH (18:49)
[2019-08-14] MEDS ORDERED: MIDAZOLAM HCL 5 MG/ML 1 ML VIAL ONE (18:59)
[2019-08-14] MEDS ORDERED: MIDAZOLAM HCL 5 MG/ML 1 ML VIAL IV STA (19:14)
[2019-08-14] MEDS ORDERED: propofoL 1,000 MG/100 ML VIAL IV SCH (19:15)
[2019-08-14] MEDS ORDERED: MIDAZOLAM HCL 125 MG/250 ML BAG IV STA (19:16)
[2019-08-14] MEDS ORDERED: PANTOprazole 40 MG TAB PO SCH (19:30)
--- NOTE | 2019-08-14 19:38 | XRay Report ---
XR chest 1V portable CLINICAL HISTORY: intubation RESPIRATORY FAILURE COMPARISON STUDY: 08/12/2019 FINDINGS: There is an endotracheal tube 4.3 cm above the monika. The heart is at the upper limits of normal in size. There is no focal pulmonary consolidation. There is no pneumothorax. There are no ple ural effusions. There is a nasogastric tube within the stomach.[ IMPRESSION: 1. Nasogastric tube which passes into the stomach 2. Endotracheal tube 4.2 cm above the monika 3. No evidence of focal pulmonary consolidation Electronically signed by: Dax Lopez M.D. 08/14/2019 7:37 PM
--- NOTE | 2019-08-14 19:49 | Procedure Note ---
Procedure Note Date of Service August 14, 2019 Procedure Date: Noted above Procedure: Endotracheal intubation Pre-procedure Diagnosis: Acute agitated delirium Post-procedure Diagnosis: same as above Prior to Procedure: Informed Consent: emergent Attending Staff: Elder Gabriel DO The identity of the patient was confirmed and a bedside time out was performed. Description of Procedure: Patient was evaluated and required intubation for impending respiratory failure. The patient was prepared in the usual fashion. A glide scope was used. A 8.5 mm inner diameter endotrachial tube was placed endotracheally to 25 cm at the teeth. A grade 1 view was obtained. The endotracheal tube was noted to pass through the vocal cords. Chest rise was bilateral. Bilateral breath sounds were heard without air sounds in the abdomen. Mist was noted in the endotracheal tube. End-tidal CO2 measurement was positive. Chest x-ray shows proper endotracheal tube placement. Complications: Patient did have a desaturation down to 85%, he rapidly metabolized his sedatives as well as his neuromuscular blockade and required [id number] ventilation. He metabolized his sedatives and neuromuscular blockade fast no we were unable to pass the tube on the first attempt before he started to desaturate. Findings: Not applicable Specimens: Not applicable Estimated blood loss: Zero Coding CPT Codes Resuscitation - Resuscitation: Endotracheal Intubation, emergency ([id number])
[2019-08-14 19:59] LABS: iSTAT Allen Test Pass; iSTAT Art Bld Gas pCO2 Correct 46 mmHg (35-46); iSTAT Art Bld Gas pH Corrected 7.336 (7.35-7.45); iSTAT Arterial Blood Gas HCO3 24 meg/L (19-24); iSTAT Arterial Blood Gas pCO2 45 mmHg (35-46); iSTAT Arterial Blood Gas pH 7.35 (7.35-7.45); iSTAT Arterial Blood Gas pO2 74 mmHg (80-95); iSTAT Arterial Blood Gas pO2 C 77; iSTAT Carbon Dioxide 26 mEq/l (24-31); iSTAT Site R Radial
[2019-08-14] MEDS ORDERED: FIBERSOURCE HN 1.2 CAL 1000 ML BAG NG SCH (20:00)
[2019-08-14 20:11] LABS: BUN Creatinine Ratio 9.1 (10-20); Calcium 8.2 mg/dl (8.5-10.1); Creatinine Clr Calc Pharmacy 106.3 ml/min; Est GFR (African American) 119.4; Magnesium 1.9 mg/dl (1.8-2.4); Potassium 3.4 mmol/L (3.5-5.1)
[2019-08-14 20:12] LABS: Phosphorus 3.4 mg/dl (2.5-4.9)
[2019-08-14] MEDS ORDERED: FAMOTIDINE 10 MG/ML 2ML VIAL IV SCH (21:00)
[2019-08-14] MEDS: PROPRANOLOL HCL 20 MG TAB PO SCH (21:00)
[2019-08-14] MEDS: FIBERSOURCE HN 1.2 CAL 1000 ML BAG NG SCH (21:01)
[2019-08-14] MEDS: FAMOTIDINE 20 MG in SYRINGE 3 ML IV SCH (21:01)
[2019-08-14] MEDS: fentaNYL citrate 100 MCG/2 ML VIAL IV PRN (23:33)
[2019-08-15] MEDS ORDERED: GABAPENTIN 600 MG TAB PO SCH
[2019-08-15] MEDS ORDERED: POTASSIUM CHLORIDE 20 MEQ/15 ML UDC PO STA (01:02)
[2019-08-15] MEDS: fentaNYL citrate 100 MCG/2 ML VIAL IV PRN ×4 (01:35→22:29)
[2019-08-15 04:51] LABS: Hematocrit (blood only) 34.4 % (42-52); Hemoglobin 11.4 g/dL (14.0-18.0); Mean Corpuscular Hemoglobin 33.8 pg (25-34); Mean Corpuscular Hgb Conc 33.1 g/dL (32-36); Mean Corpuscular Volume 102.1 fL (80-100); Mean Platelet Volume 11.3 fL (7.4-10.4); Platelet Count 98 K/uL (130-400); RDW Coefficient of Variation 12.9 % (11.5-14.5); RDW Standard Deviation 48.3 fL (36.4-46.3); Red Blood Count 3.37 M/uL (4.7-6.1); White Blood Count 4.38 K/uL (4.8-10.8)
[2019-08-15] MEDS ORDERED: fentaNYL citrate 100 MCG/2 ML VIAL IV STA (05:04)
[2019-08-15 05:11] LABS: Basophils # (auto) 0.02 K/uL (0-0.2); Basophils % (auto) 0.5 %; Eosinophils # (auto) 0.04 K/uL (0-0.5); Eosinophils % (auto) 0.9 %; Immature Granulocytes # (auto) 0.01 K/uL (0.00-0.02); Immature Granulocytes % (auto) 0.2 %; Lymphocytes % (auto) 18.3 %; Monocytes # (auto) 0.57 K/uL (0.11-0.59); Neutrophils # (auto) 2.94 K/uL (1.4-6.5); Neutrophils % (auto) 67.1 %; RBC Morphology Unremarkable
[2019-08-15 05:24] LABS: BUN Creatinine Ratio 10.1 (10-20); Calcium 8.5 mg/dl (8.5-10.1); Creatinine Clr Calc Pharmacy 99.3 ml/min; Est GFR (African American) 115.1; Est GFR (Non-African American) 99.3; Magnesium 2.1 mg/dl (1.8-2.4); Phosphorus 3.8 mg/dl (2.5-4.9); Potassium 4.1 mmol/L (3.5-5.1)
--- NOTE | 2019-08-15 07:10 | XRay Report ---
XR chest 1V portable HISTORY: 48 years-old Male intubation acute respiratory failure COMPARISON: Chest radiograph 08/14/2019 TECHNIQUE: Portable AP view of the chest FINDINGS: Endotracheal tube overlies the midline, 3.8 cm superior to the monika. Enteric tube courses below the diaphragm with distal tip outside the [id number] within the region of the gastric lumen. No pneum othorax, pleural effusion, focal airspace consolidation or overt pulmonary edema. Mild right hemidiap hragmatic elevation is unchanged. Cardiomediastinal and hilar silhouettes appear stable. Bones appear grossly intact. IMPRESSION: 1. Endotracheal tube terminates above the level of the monika. 2. Lung soto are generally clear. The above report was generated using voice recognition software. It may contain grammatical, syntax o r spelling errors. Electronically signed by: John Chávez M.D. 08/15/2019 7:08 AM
[2019-08-15] MEDS: FOLIC ACID 1 MG TAB PO SCH (07:29)
[2019-08-15] MEDS: PROPRANOLOL HCL 20 MG TAB PO SCH ×3 (07:29→20:37)
[2019-08-15] MEDS: MULTIVITAMIN TAB PO SCH (07:29)
[2019-08-15] MEDS: THIAMINE HCL 100 MG TAB PO SCH (07:30)
[2019-08-15 08:12] LABS: Hepatitis B Surface Antigen Neg (Neg)
[2019-08-15] MEDS: MIDAZOLAM HCL 125 MG/250 ML BAG IV SCH (08:12)
[2019-08-15 08:41] LABS: Hepatitis C IgG 13Yrs+Old_Rflx Neg (Neg)
[2019-08-15] MEDS: FAMOTIDINE 20 MG in SYRINGE 3 ML IV SCH ×2 (09:07→20:40)
[2019-08-15] MEDS ORDERED: ZIPRASIDONE HCL 20 MG CAP PO PRN (09:26)
--- NOTE | 2019-08-15 10:08 | Critical Care Progress Note ---
Date of Service August 15, 2019 Assessment & Plan (1) Admitted to intensive care unit: Reason Critically Ill: Acute agitated alcohol withdrawal delirium Neuro: Acute encephalopathy -Acute alcohol withdrawal delirium hyperactive -DC'd Phenobarbital withdrawal order. Start Precedex today -Geodon prn for acute exacerbation of delirium -Physical restraint as we achieve chemical control -Sedation: DC'd Versed, start Propofol, will wean off moving forward -PO thiamine, folic acid, MV CV: Hypertension/Tachycardia -Hydrochlorothiazide: Holding at this time -Related to alcohol withdrawal -Inderal 20 mg TID Pulm: -Mech Vented now. Will try to extubate today/tomorrow Fluids/Renal: Maintenance fluids -80 mils per hour Normosol GI/Nutrition: Transaminitis -Likely alcoholic hepatitis -Hepatitis panel- pending -IV Famotidine 20 mg BID -Calculated Discriminant Score- pt would NOT benefit from steroid administration -Cont tube feeds Heme: Pancytopenia -Bone marrow suppression secondary to alcohol use Endocrine: ICU hyperglycemia protocol Vascular access: Peripheral IVs DVT prophylaxis: Heparin 5000 units q12h Code Status: Full code Dispo: ICU Supervising Physician Co-Signing Physician Notes Patient seen and examined independently. Films were independently reviewed as well as data. Discussed with resident and on multidisciplinary rounds. Discussed with at bedside. 48-year-old male with heavy history of alcohol abuse admitted with acute alcohol delirium due to detox. Failed phenobarbital was intubated due to agitation. Currently on a Versed drip. Recommendations: 1. Alcohol withdrawal: Continue thiamine and folate. We will transition from Versed and phenobarbital to Precedex and propofol. As needed Geodon for agitation. Hopefully can wean propofol off and extubate on Precedex. No evidence of significant hemodynamic instability. Continue Ativan 2. Continue tube feeds for now. 3. Continue mechanical ventilation pending improvement in mental status to allow for ventilator liberation. 4. DVT and GI prophylaxis. Remains critically ill. Subjective 48 yo M found in bed this AM. No reported overnight events. On versed for sedation. Still on mech vent. Pt discussed with who is present in room. No other acute concerns or complaints. Review of Systems Review of Systems: Unobtainable due to endotracheal tube Physical Exam Constitutional: WD/WN, vitals as above + mechanically ventilated Eyes: PERRL, conjunctivae normal, anicteric sclerae ENMT: external ear and nose normal, oropharynx normal Respiratory: normal respiratory effort, lungs clear to auscultation Cardiovascular: RRR, no murmur, no edema Skin: no rashes, warm and dry Results & Data Vital Signs (Past 12 Hours) Vital Signs Pulse Resp BP Pulse Ox Pulse Ox 08/15/19 08:45 83 128/87 100 08/15/19 08:30 82 122/77 100 08/15/19 08:15 84 117/78 100 08/15/19 08:01 85 100 08/15/19 08:00 85 121/84 100 08/15/19 07:55 88 12 99 08/15/19 07:45 88 150/98 H 100 08/15/19 07:30 88 121/83 98 08/15/19 07:15 88 122/85 100 08/15/19 07:01 86 97 08/15/19 07:00 86 129/86 97 08/15/19 06:46 86 99 08/15/19 06:45 87 128/83 99 08/15/19 06:31 88 99 08/15/19 06:30 88 120/84 99 08/15/19 06:15 94 H 125/74 100 08/15/19 06:00 100 08/15/19 05:45 88 122/81 100 08/15/19 05:31 88 100 08/15/19 05:30 88 133/86 100 08/15/19 05:15 90 127/92 100 08/15/19 05:01 103 H 151/121 H 98 08/15/19 05:00 100 H 100 08/15/19 04:55 88 12 100 08/15/19 04:45 87 135/94 100 08/15/19 04:31 95 H 156/110 H 100 08/15/19 04:30 93 H 100 08/15/19 04:15 86 107/71 100 08/15/19 04:01 85 100 08/15/19 04:00 87 107/80 100 08/15/19 03:45 88 110/78 100 08/15/19 03:30 100 H 83 L 08/15/19 03:15 89 129/90 100 08/15/19 03:01 89 100 08/15/19 03:00 88 127/90 100 08/15/19 02:45 97 H 150/108 H 100 08/15/19 02:31 87 100 08/15/19 02:30 88 114/73 100 08/15/19 02:15 88 111/73 100 08/15/19 02:01 88 100 08/15/19 02:00 88 115/81 100 08/15/19 01:45 87 111/82 100 08/15/19 01:31 88 144/97 H 100 08/15/19 01:30 96 H 100 08/15/19 01:15 87 113/78 100 08/15/19 01:01 87 100 08/15/19 01:00 88 111/75 100 08/15/19 00:59 87 12 100 08/15/19 00:46 87 100 08/15/19 00:45 87 109/71 100 08/15/19 00:30 87 109/73 100 08/15/19 00:15 87 112/71 100 08/15/19 00:01 87 100 08/15/19 00:00 86 111/77 100 08/14/19 23:45 85 112/84 100 08/14/19 23:30 92 H 148/104 H 100 08/14/19 23:15 93 H 142/94 H 92 08/14/19 23:01 89 100 08/14/19 23:00 89 124/88 100 100 08/14/19 22:45 89 142/101 H 100 08/14/19 22:30 89 139/105 H 100 08/14/19 22:16 90 13 92 08/14/19 22:15 93 H 158/115 H 100 Laboratory Results Laboratory Results - last 24 hr 08/13/19 08/14/19 08/14/19 06:10 11:00 19:21 WBC RBC Hgb Hct MCV MCH MCHC RDW Std Deviation RDW Coeff of Juan Plt Count MPV Immature Gran % (Auto) Neut % (Auto) Lymph % (Auto) [place] % (Auto) Eos % (Auto) Baso % (Auto) Immature Gran # (Auto) Neut # (Auto) Lymph # (Auto) [place] # (Auto) Eos # (Auto) Baso # (Auto) RBC Morphology Peripher Smr Path Cons Sample Site POC pH POC pCO2 POC pO2 POC HCO3 POC Total CO2 POC Base Excess ABG pH (Temp Correct) ABG pCO2 (Temp Corrct POC ABG pO2 at Pt Temp POC ABG O2 Sat Jun Test O2 Delivery Device POC O2 Rate Minute Ventilation Tidal Volume PEEP Sodium 139 Potassium 3.4 L Chloride 103 Carbon Dioxide 27 Anion Gap 9.0 BUN 8 Creatinine 0.85 Est Cr Clr Drug Dosing 106.3 Est GFR ( Amer) 119.4 Est GFR (Non-Af Amer) 103.0 BUN/Creatinine Ratio 9.1 L Glucose 90 Calcium 8.2 L Phosphorus 3.4 Magnesium 1.9 Amylase 91 Lipase 260 Nasal Screen MRSA (PCR) Negative Hepatitis A IgM Ab Hep Bs Antigen Hep B Core IgM Ab Hepatitis C Antibody 08/14/19 08/15/19 08/15/19 19:45 04:27 04:27 WBC 4.38 L RBC 3.37 L Hgb 11.4 L Hct 34.4 L MCV 102.1 H MCH 33.8 MCHC 33.1 RDW Std Deviation 48.3 H RDW Coeff of Juan 12.9 Plt Count 98 L MPV 11.3 H Immature Gran % (Auto) 0.2 Neut % (Auto) 67.1 Lymph % (Auto) 18.3 [place] % (Auto) 13.0 Eos % (Auto) 0.9 Baso % (Auto) 0.5 Immature Gran # (Auto) 0.01 Neut # (Auto) 2.94 Lymph # (Auto) 0.80 L [place] # (Auto) 0.57 Eos # (Auto) 0.04 Baso # (Auto) 0.02 RBC Morphology Unremarkable Peripher Smr Path Cons Sample Site R Radial POC pH 7.35 POC pCO2 45 POC pO2 74 L POC HCO3 24 POC Total CO2 26 POC Base Excess -1.0 ABG pH (Temp Correct) 7.336 L ABG pCO2 (Temp Corrct 46 POC ABG pO2 at Pt Temp 77 POC ABG O2 Sat 94.0 Jun Test Pass O2 Delivery Device Ventilator POC O2 Rate 12 Minute Ventilation 5.7 Tidal Volume 500 PEEP 5 Sodium 136 Potassium 4.1 D Chloride 102 Carbon Dioxide 27 Anion Gap 7.0 BUN 9 Creatinine 0.91 Est Cr Clr Drug Dosing 99.3 Est GFR ( Amer) 115.1 Est GFR (Non-Af Amer) 99.3 BUN/Creatinine Ratio 10.1 Glucose 92 Calcium 8.5 Phosphorus 3.8 Magnesium 2.1 Amylase Lipase Nasal Screen MRSA (PCR) Hepatitis A IgM Ab Hep Bs Antigen Hep B Core IgM Ab Hepatitis C Antibody 08/15/19 08/15/19 04:27 04:27 WBC RBC Hgb Hct MCV MCH MCHC RDW Std Deviation RDW Coeff of Juan Plt Count MPV Immature Gran % (Auto) Neut % (Auto) Lymph % (Auto) [place] % (Auto) Eos % (Auto) Baso % (Auto) Immature Gran # (Auto) Neut # (Auto) Lymph # (Auto) [place] # (Auto) Eos # (Auto) Baso # (Auto) RBC Morphology Peripher Smr Path Cons Sample Site POC pH POC pCO2 POC pO2 POC HCO3 POC Total CO2 POC Base Excess ABG pH (Temp Correct) ABG pCO2 (Temp Corrct POC ABG pO2 at Pt Temp POC ABG O2 Sat Jun Test O2 Delivery Device POC O2 Rate Minute Ventilation Tidal Volume PEEP Sodium Potassium Chloride Carbon Dioxide Anion Gap BUN Creatinine Est Cr Clr Drug Dosing Est GFR ( Amer) Est GFR (Non-Af Amer) BUN/Creatinine Ratio Glucose Calcium Phosphorus Magnesium Amylase Lipase Nasal Screen MRSA (PCR) Hepatitis A IgM Ab Pending Hep Bs Antigen Neg Hep B Core IgM Ab Pending Hepatitis C Antibody Neg Medications Administered Current Inpatient Medications Enteral Nutritional Formula (Fibersource Hn 1.2 Adin Liquid) 1,000 ml NG DAILY@2000 [facility]; Protocol Stop: 09/13/19 20:29 Last Admin: 08/14/19 21:01 Dose: 1,000 ml Documented by: Fentanyl Citrate (Fentanyl Citrate) 100 mcg IV Q2H PRN PRN Reason: Severe Pain (7,8,9,10) Stop: 08/28/19 18:48 Last Admin: 08/15/19 06:06 Dose: 100 mcg Documented by: Folic Acid (Folvite) 1 mg PO QAM [facility] Stop: 09/12/19 08:59 Last Admin: 08/15/19 07:29 Dose: 1 mg Documented by: Famotidine 20 mg/ Syringe 5 mls @ 2.5 mls/min IV BID [facility] Stop: 09/13/19 20:59 Last Admin: 08/15/19 09:07 Dose: 2.5 mls/min Documented by: Propofol (Diprivan) 1,000 mg in 100 mls @ 2.451 mls/hr IV .Q24H [facility]; Protocol Stop: 08/18/19 09:23 Last Admin: 08/15/19 10:49 Dose: 5 mcg/kg/min, 2.5 mls/hr Documented by: Dexmedetomidine HCl 200 mcg/ (Sodium Chloride) 50 mls @ 4.09 mls/hr IV .[id number] [facility]; Protocol Stop: 08/19/19 09:23 Last Admin: 08/15/19 10:50 Dose: 0.2 mcg/kg/hr, 4.1 mls/hr Documented by: Multivitamins (Multivitamin Tab) 1 tab PO [facility] Stop: 09/12/19 08:59 Last Admin: 08/15/19 07:29 Dose: 1 tab Documented by: Propranolol HCl (Inderal) 20 mg PO TID [facility] Stop: 09/13/19 20:59 Last Admin: 08/15/19 07:29 Dose: 20 mg Documented by: Thiamine HCl (Vitamin B-1) 100 mg PO QAM [facility] Stop: 09/12/19 08:59 Last Admin: 08/15/19 07:30 Dose: 100 mg Documented by: Ziprasidone (Geodon) 20 mg PO BID PRN PRN Reason: Agitation Stop: 09/14/19 20:59 Ziprasidone (Geodon) 20 mg IM BID PRN PRN Reason: agitation Stop: 09/14/19 10:54 PG Care Time/CCT Total # of Minutes Spent Total Time Spent with Patient: Total time spent is greater than 50% in coordination of care (as documented) at patient's floor/unit and/or counseling patient: Critical Care Time: Yes Total Critical Care Time: 37 Resident Activity Tracking Resident Involvement: Resident Care Provided Care Provided: Adult Hospital Medicine
[2019-08-15] MEDS: propofoL 1,000 MG/100 ML VIAL IV SCH ×2 (10:49→23:26)
[2019-08-15] MEDS: DEXMEDETOMIDINE HCL 200 MCG in SODIUM CHLORIDE 0.9% 48 ML IV SCH ×3 (10:50→21:12)
[2019-08-15] MEDS: HEPARIN SOD 5,000 UNIT/0.5 ML VIAL SQ SCH ×2 (12:32→23:26)
--- NOTE | 2019-08-15 13:01 | Neurology Progress Note ---
Date of Service August 15, 2019 Assessment & Plan (1) Alcohol withdrawal: 1. currently on propofol/thiamine Ziprasidone 2. seizure precautions 3. ICU team for medical management 4. will reassess once off sedation 5. EtOH protocol when appropriate 6. rehab for EtOH counselling Supervising Physician Co-Signing Physician Notes Patient was seen and examined. Intubated yesterday due to alcohol withdrawal / agitation. He is currently sedated. No family at bedside. Weaned off Versed and Precedex. Remains on Propofol. Agree with starting scheduled Ativan and weaning off Versed as tolerated. Continue IV thiamine daily. Leonard Monroe is a resident of [place], [place] who was in town for parents weekend visiting their daughter who is a [employer] freshman. They were on an indoor tour of [employer] when he stood up from his seat he had seizure activity which lasted about 2 minutes. He had a stiffening and shaking. He bit his tongue, and he had a post ictal for about 5 minutes and confused when he woke up. He is a heavy drinking about 4-5 days a week which has increased over the past 5-6 months due to some personal stressors. He has not been eating or sleeping well. He does have a tremor when he is not drinking but no seizure episodes in the past. He was admitted to the hospital and started to have detox symptoms was taken to the ICU and eventually intubated. His is bedside and states she thought he had reduced his drinking over the last 3 years but with hating his job and a knee surgery which limited his activity he has become depressed. Physical Exam Physical Exam: Gen: intubated lungs on support CV RRR on sedation Results & Data Vital Signs (Past 12 Hours) Vital Signs Pulse Resp BP Pulse Ox 08/15/19 12:01 82 99 08/15/19 12:00 82 110/65 99 08/15/19 11:50 83 99 08/15/19 11:45 83 105/70 99 08/15/19 11:40 85 99 08/15/19 11:31 86 99 08/15/19 11:30 86 115/73 100 08/15/19 11:20 85 100 08/15/19 11:15 86 130/88 100 08/15/19 11:13 85 12 100 08/15/19 11:10 85 100 08/15/19 11:08 85 135/80 100 10/14/19 11:01 84 100 /14/19 11:00 85 138/84 100 14/19 10:50 86 100 14/19 10:45 84 131/95 100 14/19 10:40 85 100 14/19 10:31 85 100 14/19 10:30 83 136/90 100 14/19 10:20 83 100 14/19 10:15 83 135/89 100 14/19 10:10 85 100 14/19 10:01 84 100 14/19 10:00 83 132/83 100 14/19 09:50 83 100 14/19 09:45 85 135/78 100 14/19 09:40 84 100 14/19 09:31 84 100 14/19 09:30 83 130/87 100 14/19 09:20 82 100 14/19 09:15 83 132/91 100 14/19 09:10 83 100 14/19 09:01 82 100 14/19 09:00 84 137/98 100 14/19 08:50 84 100 14/19 08:46 81 100 14/19 08:45 83 128/87 100 14/19 08:30 82 122/77 100 14/19 08:15 84 117/78 100 14/19 08:01 85 100 14/19 08:00 85 121/84 100 14/19 07:55 88 12 99 14/19 07:45 88 150/98 H 100 14/19 07:30 88 121/83 98 14/19 07:15 88 122/85 100 14/19 07:01 86 97 14/19 07:00 86 129/86 97 14/19 06:46 86 99 14/19 06:45 87 128/83 99 14/19 06:31 88 99 14/19 06:30 88 120/84 99 14/19 06:15 94 H 125/74 100 14/19 06:00 100 14/19 05:45 88 122/81 100 14/19 05:31 88 100 10/14/19 05:30 88 133/86 100 08/15/19 05:15 90 127/92 100 08/15/19 05:01 103 H 151/121 H 98 08/15/19 05:00 100 H 100 08/15/19 04:55 88 12 100 08/15/19 04:45 87 135/94 100 08/15/19 04:31 95 H 156/110 H 100 08/15/19 04:30 93 H 100 08/15/19 04:15 86 107/71 100 08/15/19 04:01 85 100 08/15/19 04:00 87 107/80 100 08/15/19 03:45 88 110/78 100 08/15/19 03:30 100 H 83 L 08/15/19 03:15 89 129/90 100 08/15/19 03:01 89 100 08/15/19 03:00 88 127/90 100 08/15/19 02:45 97 H 150/108 H 100 08/15/19 02:31 87 100 08/15/19 02:30 88 114/73 100 08/15/19 02:15 88 111/73 100 08/15/19 02:01 88 100 08/15/19 02:00 88 115/81 100 08/15/19 01:45 87 111/82 100 08/15/19 01:31 88 144/97 H 100 08/15/19 01:30 96 H 100 08/15/19 01:15 87 113/78 100 08/15/19 01:01 87 100 08/15/19 01:00 88 111/75 100 08/15/19 00:59 87 12 100 Laboratory Results Abnormal lab results 08/14/19 08/14/19 08/15/19 Range/Units 19:21 19:45 04:27 WBC 4.38 L (4.8-10.8) K/uL RBC 3.37 L (4.7-6.1) M/uL Hgb 11.4 L (14.0-18.0) g/dL Hct 34.4 L (42-52) % MCV 102.1 H (80-100) fL RDW Std Deviation 48.3 H (36.4-46.3) fL Plt Count 98 L (130-400) K/uL MPV 11.3 H (7.4-10.4) fL Lymph # (Auto) 0.80 L (1.2-3.4) K/uL POC pO2 74 L (80-95) mmHg ABG pH (Temp Correct) 7.336 L (7.35-7.45) Potassium 3.4 L (3.5-5.1) mmol/L BUN/Creatinine Ratio 9.1 L (10-20) Calcium 8.2 L (8.5-10.1) mg/dl Diagnostic Findings CXR- Endotracheal tube terminates above the level of the monika. Lung soto are generally clear. (1) Alcohol withdrawal Complication of substance-induced condition: with unspecified complication Qualified Code(s): F10.239 - Alcohol dependence with withdrawal, unspecified
--- NOTE | 2019-08-15 13:27 | Consultation ---
Date of Consultation August 15, 2019 History of Present Illness Attending Physician: Ben Alcala MD Allergies Allergy/AdvReac Type Severity Reaction Status Date / Time No Known Allergies Allergy Verified 08/12/19 20:46 Home Medications Home Medications Medication Instructions Recorded Confirmed Type hydrochlorothiazide 25 mg PO DAILY 08/12/19 08/12/19 History trazodone 50 mg PO HS 08/12/19 08/12/19 History Patient History Medical History Hypertension Mood disorder Family History Other No pertinent family history in first degree relatives Social History Preferred Language: Tajik Communication Ability: Effective Beliefs That Will Affect Care: None marital status: Current Living Situation: Spouse and Family Feels Safe at Home: No Is there a partner from a previous relationship who is making you feel unsafe now?: No Any Concerns about Your Family Situation: No Would You Like to Speak to Someone About Your Situation: No Safety Concerns: Feels Safe At This Time Smoking Status: Never smoker Do You Dip or Chew Tobacco: No ; Hx Alcohol Use: Yes Alcohol type: hard liquor Hx Substance Use: No Physical Exam Physical Exam: General alert oriented, in no acute distress Results & Data Vital Signs (Past 12 Hours) Vital Signs Pulse Resp BP Pulse Ox 08/15/19 13:09 79 12 100 08/15/19 12:01 82 99 08/15/19 12:00 82 110/65 99 08/15/19 11:50 83 99 08/15/19 11:45 83 105/70 99 08/15/19 11:40 85 99 08/15/19 11:31 86 99 08/15/19 11:30 86 115/73 100 08/15/19 11:20 85 100 08/15/19 11:15 86 130/88 100 08/15/19 11:13 85 12 100 08/15/19 11:10 85 100 08/15/19 11:08 85 135/80 100 08/15/19 11:01 84 100 08/15/19 11:00 85 138/84 100 08/15/19 10:50 86 100 10/14/19 10:45 84 131/95 100 10/14/19 10:40 85 100 14/19 10:31 85 100 14/19 10:30 83 136/90 100 14/19 10:20 83 100 14/19 10:15 83 135/89 100 14/19 10:10 85 100 14/19 10:01 84 100 14/19 10:00 83 132/83 100 14/19 09:50 83 100 14/19 09:45 85 135/78 100 14/19 09:40 84 100 14/19 09:31 84 100 14/19 09:30 83 130/87 100 14/19 09:20 82 100 14/19 09:15 83 132/91 100 14/19 09:10 83 100 14/19 09:01 82 100 14/19 09:00 84 137/98 100 14/19 08:50 84 100 14/19 08:46 81 100 14/19 08:45 83 128/87 100 14/19 08:30 82 122/77 100 14/19 08:15 84 117/78 100 14/19 08:01 85 100 14/19 08:00 85 121/84 100 14/19 07:55 88 12 99 14/19 07:45 88 150/98 H 100 14 07:30 88 121/83 98 14/19 07:15 88 122/85 100 14/19 07:01 86 97 1419 07:00 86 129/86 97 14/19 06:46 86 99 14/19 06:45 87 128/83 99 14/19 06:31 88 99 14/19 06:30 88 120/84 99 14/19 06:15 94 H 125/74 100 14/19 06:00 100 14/19 05:45 88 122/81 100 14/19 05:31 88 100 14/19 05:30 88 133/86 100 14/19 05:15 90 127/92 100 14/19 05:01 103 H 151/121 H 98 10/14/19 05:00 100 H 100 14 04:55 88 12 100 14/ 04:45 87 135/94 100 14 04:31 95 H 156/110 H 100 14 04:30 93 H 100 14 04:15 86 107/71 100 08/15/19 04:01 85 100 14 04:00 87 107/80 100 14 03:45 88 110/78 100 14 03:30 100 H 83 L 08/15/19 03:15 89 129/90 100 08/15/19 03:01 89 100 14 03:00 88 127/90 100 08/15/19 02:45 97 H 150/108 H 100 08/15/19 02:31 87 100 14 02:30 88 114/73 100 14 02:15 88 111/73 100 14/ 02:01 88 100 14 02:00 88 115/81 100 14/ 01:45 87 111/82 100 14/19 01:31 88 144/97 H 100 14 01:30 96 H 100
[2019-08-15] MEDS: LORazepam 2 MG/4 ML VIAL IV SCH ×2 (13:46→21:34)
[2019-08-15] MEDS: ZIPRASIDONE 20 MG/ML SDV IM PRN ×2 (17:15→23:42)
--- NOTE | 2019-08-15 19:50 | Hospitalist Progress Note ---
Date of Service August 15, 2019 Assessment & Plan (1) Seizure: New onset Secondary to alcohol withdrawal -- Alcohol withdrawal protocol ordered discussed with Dr. Taylor Neurologist, recommend to transition from Gabapentin to Ativan Taper protocol 08/14/2019 Patient exhibiting signs of early delirium tremens transferred to ICU Delirium Tremens -- intubated -- transitioned to Precedex, Ativan on Propofol per sedation -- management of sedation, ventilator per [employer] Hypokalemia -- replaced with IV and PO K resolved -- monitor Pancytopenia -- likely from Alcoholism -- no signs of infection, shortness of breath, bleeding -- peripheral smear: The findings are that of a non-specific pancytopenia. No overt changes of myelodysplasia or hemolysis are noted. Liver disease (cirrhosis) may result in pancytopenia. The MCV is noted to be at the higher end of normal. If clinically indicated then B12/folate testing is suggested -- stabel overall, monitor Possible Depression -- with anxiety -- Psych consulted Trazodone increased to 100mg po daily Hypertension -- BP on the low side, likely from sedation hold usual HCTZ Elevated Bilirubin, Direct Bilirubinemia Elevated LFTs -- Liver US: IMPRESSION: 1. No cholelithiasis or sonographic evidence of acute cholecystitis. 2. Hepatomegaly with hepatic steatosis. 3. No biliary ductal dilation. -- likely secondary to Alcoholism -- monitor outpatient ff up Pre-DM -- A1c 5.9 -- monitor as outpatient Disposition pending anticipate d/c home with family support when medically stable DVT prophylaxis. SCDs RE thrombocytopenia Full code Discussed case and plan of care with patient's at bedside All questions answered She is comfortable, understanding, agreeable with the plan of care Subjective ff up for alcohol withdrawal seen intubated, sedated not in distress NG tube: no signs of bleeding no other issues per RN at bedside visiting, updated Review of Systems Review of Systems: All systems reviewed & are unremarkable except as noted in HPI & below Physical Exam Physical Exam: General- intubated, sedated, not in distress Eyes- anicteric Neck- no JVD Lungs- clear breath sounds bilaterally, no rales/wheezes Heart- normal rate, regular rhythm; no murmurs Abdomen- normal bowel sounds, nondistended, soft, nontender Extremities- no pretibial edema, no calf tenderness Neuro- sedated, intubated Skin- warm & dry Results & Data Vital Signs (Past 12 Hours) Vital Signs Pulse Resp BP Pulse Ox 08/15/19 16:50 80 17 99 08/15/19 14:50 76 100 08/15/19 14:45 76 95/60 L 100 08/15/19 14:40 76 100 08/15/19 14:31 75 100 08/15/19 14:30 75 95/61 L 100 08/15/19 14:20 75 100 08/15/19 14:15 76 93/58 L 100 08/15/19 14:10 76 100 08/15/19 14:01 77 100 08/15/19 14:00 77 94/58 L 100 08/15/19 13:50 78 100 08/15/19 13:45 78 98/53 L 100 08/15/19 13:40 78 100 08/15/19 13:31 77 100 08/15/19 13:30 77 100/61 100 08/15/19 13:20 78 100 08/15/19 13:15 77 95/62 L 100 08/15/19 13:10 78 100 08/15/19 13:09 79 12 100 08/15/19 13:01 78 100 08/15/19 13:00 78 92/61 L 100 08/15/19 12:50 79 100 08/15/19 12:45 78 98/62 L 100 08/15/19 12:40 79 100 08/15/19 12:31 79 100 08/15/19 12:30 80 102/61 100 08/15/19 12:20 81 100 08/15/19 12:15 81 101/65 100 08/15/19 12:10 81 99 08/15/19 12:01 82 99 08/15/19 12:00 82 110/65 99 08/15/19 11:50 83 99 08/15/19 11:45 83 105/70 99 08/15/19 11:40 85 99 08/15/19 11:31 86 99 08/15/19 11:30 86 115/73 100 08/15/19 11:20 85 100 08/15/19 11:15 86 130/88 100 08/15/19 11:13 85 12 100 08/15/19 11:10 85 100 08/15/19 11:08 85 135/80 100 10/14/19 11:01 84 100 10/14/19 11:00 85 138/84 100 10/14/19 10:50 86 100 10/14/19 10:45 84 131/95 100 10/14/19 10:40 85 100 10/14/19 10:31 85 100 10/14/19 10:30 83 136/90 100 10/14/19 10:20 83 100 10/14/19 10:15 83 135/89 100 10/14/19 10:10 85 100 10/14/19 10:01 84 100 10/14/19 10:00 83 132/83 100 10/14/19 09:50 83 100 10/14/19 09:45 85 135/78 100 10/14/19 09:40 84 100 10/14/19 09:31 84 100 10/14/19 09:30 83 130/87 100 10/14/19 09:20 82 100 10/14/19 09:15 83 132/91 100 10/14/19 09:10 83 100 10/14/19 09:01 82 100 10/14/19 09:00 84 137/98 100 10/14/19 08:50 84 100 10/14/19 08:46 81 100 10/14/19 08:45 83 128/87 100 10/14/19 08:30 82 122/77 100 10/14/19 08:15 84 117/78 100 10/14/19 08:01 85 100 10/14/19 08:00 85 121/84 100 10/14/19 07:55 88 12 99
[2019-08-15] MEDS: FIBERSOURCE HN 1.2 CAL 1000 ML BAG NG SCH (20:38)
[2019-08-16] MEDS: DEXMEDETOMIDINE HCL 200 MCG in SODIUM CHLORIDE 0.9% 48 ML IV SCH ×5 (01:23→12:15)
[2019-08-16] MEDS: fentaNYL citrate 100 MCG/2 ML VIAL IV PRN (04:15)
[2019-08-16 04:50] LABS: Basophils # (auto) 0.02 K/uL (0-0.2); Basophils % (auto) 0.5 %; Eosinophils % (auto) 2.7 %; Hematocrit (blood only) 35.3 % (42-52); Hemoglobin 11.8 g/dL (14.0-18.0); Immature Granulocytes # (auto) 0.01 K/uL (0.00-0.02); Immature Granulocytes % (auto) 0.3 %; Lymphocytes # (auto) 0.62 K/uL (1.2-3.4); Lymphocytes % (auto) 16.5 %; Mean Corpuscular Hemoglobin 33.8 pg (25-34); Mean Corpuscular Hgb Conc 33.4 g/dL (32-36); Mean Corpuscular Volume 101.1 fL (80-100); Mean Platelet Volume 10.4 fL (7.4-10.4); Monocytes # (auto) 0.52 K/uL (0.11-0.59); Monocytes % (auto) 13.9 %; Neutrophils # (auto) 2.48 K/uL (1.4-6.5); Neutrophils % (auto) 66.1 %; Platelet Count 126 K/uL (130-400); RDW Coefficient of Variation 12.7 % (11.5-14.5); RDW Standard Deviation 46.8 fL (36.4-46.3); Red Blood Count 3.49 M/uL (4.7-6.1); White Blood Count 3.75 K/uL (4.8-10.8)
[2019-08-16 05:06] LABS: BUN Creatinine Ratio 12.4 (10-20); Calcium 8.3 mg/dl (8.5-10.1); Creatinine Clr Calc Pharmacy 123.8 ml/min; Est GFR (African American) 127.1; Est GFR (Non-African American) 109.7; Magnesium 2.1 mg/dl (1.8-2.4); Potassium 3.5 mmol/L (3.5-5.1)
[2019-08-16 05:09] LABS: Bilirubin,Total 1.9 mg/dl (0.2-1)
[2019-08-16] MEDS ORDERED: POTASSIUM CHLORIDE 20 MEQ/15 ML UDC PO STA (05:40)
[2019-08-16 05:43] LABS: Giant Platelets 2+
[2019-08-16] MEDS: LORazepam 2 MG/4 ML VIAL IV SCH ×3 (06:10→21:36)
--- NOTE | 2019-08-16 06:47 | XRay Report ---
XR chest 1V portable CLINICAL HISTORY: intubation tube position COMPARISON STUDY: 08/15/2019 FINDINGS: Endotracheal tube 3.2 cm with a chronic. Lungs are considered clear. Diaphragms are smooth. The costophrenic angles are sharp. IMPRESSION: Endotracheal tube 3.2 cm above the monika. The lungs remain clear The above report was generated using voice recognition software. It may contain grammatical, syntax or spelling errors. Electronically signed by: Lake Nguyen M.D. 08/16/2019 6:46 AM
[2019-08-16] MEDS: PROPRANOLOL HCL 20 MG TAB PO SCH ×3 (07:13→20:41)
[2019-08-16] MEDS: MULTIVITAMIN TAB PO SCH (07:13)
[2019-08-16] MEDS: FOLIC ACID 1 MG TAB PO SCH (07:13)
[2019-08-16] MEDS: THIAMINE HCL 100 MG TAB PO SCH (07:14)
[2019-08-16] MEDS ORDERED: HydrALAZINE HCL 20 MG/ML VIAL IV PRN (07:19)
[2019-08-16 07:53] LABS: 7-Aminoclonaz, Confirm NEGATIVE NG/ML (CUTOFF=25); Hydro-Alp Ur, GC/MS NEGATIVE NG/ML (CUTOFF=25); Hydroxyethylflurazepam, Conf NEGATIVE NG/ML (CUTOFF=50); Hydroxytriazolam NEGATIVE NG/ML (CUTOFF=50); Lorazepam, Ur GC/MS NEGATIVE NG/ML (CUTOFF=50); Marijuana Quant, GCMS Urine 25 NG/ML (CUTOFF=5); Nordiazepam, Confirm 67 NG/ML (CUTOFF=50); Oxazepam Ur, GC/MS NEGATIVE NG/ML (CUTOFF=50); Temazepam, Confirm 75 NG/ML (CUTOFF=50)
[2019-08-16] MEDS: FAMOTIDINE 20 MG in SYRINGE 3 ML IV SCH (07:56)
--- NOTE | 2019-08-16 08:11 | Critical Care Progress Note ---
Date of Service August 16, 2019 Assessment & Plan (1) Admitted to intensive care unit: Reason Critically Ill: Acute agitated alcohol withdrawal delirium Neuro: Acute encephalopathy- improved -Acute alcohol withdrawal delirium hyperactive -DC'd Phenobarbital withdrawal order. Cont on Precedex, will try to wean off. Cont Ativan -Geodon prn for acute exacerbation of delirium -Restraints removed -Sedation: Off propofol now -PO thiamine, folic acid, MV -AWSS protocol ordered -Appreciate neuro recommendations -Depression: Will increase trazodone 100 mg HS moving forward. Appreciate Psych recommendations CV: Hypertension/Tachycardia -Hydrochlorothiazide: Holding at this time -Related to alcohol withdrawal -Inderal 20 mg TID -Willam consider adding ACEi to try and better control HTN moving forward -PRN Hydralazine Pulm: -Extubated today, sating well on RA Fluids/Renal: -Remove ray today GI/Nutrition: Transaminitis- improving -Likely alcoholic hepatitis -Hepatitis panel- pending -Liver US reviewed -IV Famotidine 20 mg BID -Calculated Discriminant Score- pt would NOT benefit from steroid administration -Tube feeds dc'd. Will advance diet today if passes bedside swallow eval Heme: Pancytopenia -Bone marrow suppression secondary to alcohol use Endocrine: ICU hyperglycemia protocol Vascular access: Peripheral IVs DVT prophylaxis: Heparin 5000 units q12h Code Status: Full code Dispo: Possible downgrade out of ICU Supervising Physician Co-Signing Physician Notes Patient seen and examined. EMR reviewed. Discussed on multidisciplinary rounds and with FP resident. Agree with his assessment and plan as noted. 48-year-old male transferred to the ICU for acute alcohol withdrawal intubated for agitation and delirium. His delirium was markedly improved with use of Ativan, Geodon, and Precedex. We have been able to wean propofol to off. He was following commands this morning and was extubated. We are working on weaning down his Precedex. He continues to receive intermittent Geodon and Ativan. We will institute alcohol withdrawal severity score with scale benzodiazepine administration. Discontinue Ray catheter. Once he is off Precedex, out of bed to chair as tolerated. Will advance diet as tolerated. If he does well he may be eligible to transfer the floor later today or tomorrow. Patient and updated at the bedside. Subjective 48 yo M found in bed this AM on [facility] vent. No acute overnight events. Pt was extubated this AM and tolerated well, sating well on RA now. Precedex at 1.5. Propofol off now. Pt alert and able to follow commands. Tube feeds removed. Will advance diet today. No other acute concerns or complaints. Review of Systems Review of Systems: All systems reviewed & are unremarkable except as noted in HPI & below Physical Exam Constitutional: WD/WN, vitals as above Eyes: PERRL, conjunctivae normal, anicteric sclerae ENMT: external ear and nose normal, oropharynx normal Respiratory: normal respiratory effort, lungs clear to auscultation Cardiovascular: RRR, no murmur, no edema Gastrointestinal (Abdomen): normal bowel sounds, soft, nontender, no hepatosplenomegaly Skin: no rashes, warm and dry Neurologic: CN's II-XI intact bilaterally Psychiatric: Orientation: alert Results & Data Vital Signs (Past 12 Hours) Vital Signs Pulse Resp BP Pulse Ox 08/16/19 08:01 77 100 08/16/19 08:00 76 160/101 H 100 08/16/19 07:53 73 169/110 H 100 08/16/19 07:50 72 100 08/16/19 07:40 71 100 08/16/19 07:32 83 197/105 H 100 08/16/19 07:30 82 100 08/16/19 07:25 74 15 100 08/16/19 07:20 74 100 08/16/19 07:10 78 100 08/16/19 07:08 76 167/116 H 100 08/16/19 07:01 75 100 08/16/19 07:00 77 157/106 H 100 08/16/19 06:50 75 100 08/16/19 06:45 74 100 08/16/19 06:01 67 100 08/16/19 06:00 67 184/116 H 100 08/16/19 05:31 66 100 08/16/19 05:30 67 182/115 H 100 08/16/19 05:15 67 180/116 H 100 08/16/19 05:01 66 100 08/16/19 05:00 67 176/113 H 100 08/16/19 04:45 67 166/110 H 100 08/16/19 04:30 71 138/99 100 08/16/19 04:15 75 110/80 98 08/16/19 04:12 72 117/81 08/16/19 03:30 68 169/113 H 100 08/16/19 03:01 69 100 08/16/19 03:00 68 168/113 H 100 08/16/19 02:30 69 167/110 H 99 08/16/19 02:00 67 167/112 H 100 08/16/19 01:30 71 157/106 H 99 08/16/19 01:18 74 12 97 08/16/19 01:00 73 142/97 H 98 08/16/19 00:30 72 149/99 H 98 08/16/19 00:01 72 99 08/16/19 00:00 72 151/102 H 98 08/15/19 23:46 68 99 08/15/19 23:45 69 155/106 H 99 08/15/19 23:31 72 100 08/15/19 23:30 72 12 150/103 H 98 08/15/19 23:15 71 133/95 100 08/15/19 23:01 73 100 08/15/19 23:00 75 124/85 100 08/15/19 22:45 74 116/72 100 08/15/19 22:31 75 100 08/15/19 22:30 77 128/89 100 08/15/19 22:15 72 154/104 H 100 08/15/19 22:01 73 100 08/15/19 22:00 74 153/118 H 100 08/15/19 21:45 70 148/102 H 100 08/15/19 21:31 79 142/106 H 100 08/15/19 21:30 81 98 08/15/19 21:16 72 100 08/15/19 21:15 73 119/89 100 08/15/19 21:01 80 137/85 100 08/15/19 21:00 82 100 08/15/19 20:46 70 100 08/15/19 20:45 71 136/91 100 08/15/19 20:31 72 100 08/15/19 20:30 73 116/83 100 08/15/19 20:16 71 100 08/15/19 20:15 71 141/101 H 100 Laboratory Results Laboratory Results - last 24 hr 08/13/19 08/13/19 08/15/19 06:10 08:50 20:57 WBC RBC Hgb Hct MCV MCH MCHC RDW Std Deviation RDW Coeff of Juan Plt Count MPV Immature Gran % (Auto) Neut % (Auto) Lymph % (Auto) [place] % (Auto) Eos % (Auto) Baso % (Auto) Immature Gran # (Auto) Neut # (Auto) Lymph # (Auto) [place] # (Auto) Eos # (Auto) Baso # (Auto) Giant Platelets Peripher Smr Path Cons Sodium Potassium Chloride Carbon Dioxide Anion Gap BUN Creatinine Est Cr Clr Drug Dosing Est GFR ( Amer) Est GFR (Non-Af Amer) BUN/Creatinine Ratio Glucose POC Glucose 139 H Calcium Magnesium Total Bilirubin Direct Bilirubin AST ALT Alkaline Phosphatase Total Protein Albumin U OH-Alprazolam Confrm NEGATIVE 7-Amino Clonazepam NEGATIVE Ur Nordiazepam Confirm 67 A U OH-ethylflurazepam NEGATIVE U Lorazepam Cnf GC/MS NEGATIVE U Oxazepam Confm GC/MS NEGATIVE Ur Temazepam Confirm 75 A U OH-Triazolam Confirm NEGATIVE U OH-Midazolam Confirm NEGATIVE U Marijuana THC Carboxy 25 A 08/15/19 08/16/19 08/16/19 23:24 04:39 04:39 WBC 3.75 L RBC 3.49 L Hgb 11.8 L Hct 35.3 L MCV 101.1 H MCH 33.8 MCHC 33.4 RDW Std Deviation 46.8 H RDW Coeff of Juan 12.7 Plt Count 126 L MPV 10.4 Immature Gran % (Auto) 0.3 Neut % (Auto) 66.1 Lymph % (Auto) 16.5 [place] % (Auto) 13.9 Eos % (Auto) 2.7 Baso % (Auto) 0.5 Immature Gran # (Auto) 0.01 Neut # (Auto) 2.48 Lymph # (Auto) 0.62 L [place] # (Auto) 0.52 Eos # (Auto) 0.10 Baso # (Auto) 0.02 Giant Platelets 2+ Peripher Smr Path Cons Sodium 138 Potassium 3.5 Chloride 103 Carbon Dioxide 30 Anion Gap 5.0 BUN 9 Creatinine 0.73 Est Cr Clr Drug Dosing 123.8 Est GFR ( Amer) 127.1 Est GFR (Non-Af Amer) 109.7 BUN/Creatinine Ratio 12.4 Glucose 131 H POC Glucose 123 H Calcium 8.3 L Magnesium 2.1 Total Bilirubin 1.9 H Direct Bilirubin 1.0 H AST 238 H ALT 158 H Alkaline Phosphatase 94 Total Protein 7.0 Albumin 3.0 L U OH-Alprazolam Confrm 7-Amino Clonazepam Ur Nordiazepam Confirm U OH-ethylflurazepam U Lorazepam Cnf GC/MS U Oxazepam Confm GC/MS Ur Temazepam Confirm U OH-Triazolam Confirm U OH-Midazolam Confirm U Marijuana THC Carboxy Medications Administered Current Inpatient Medications Enteral Nutritional Formula (Fibersource Hn 1.2 Adin Liquid) 1,000 ml NG DAILY@2000 [facility]; Protocol Stop: 09/13/19 20:29 Last Admin: 08/15/19 20:38 Dose: 1,000 ml Documented by: Fentanyl Citrate (Fentanyl Citrate) 100 mcg IV Q2H PRN PRN Reason: Severe Pain (7,8,9,10) Stop: 08/28/19 18:48 Last Admin: 08/16/19 04:15 Dose: 100 mcg Documented by: Folic Acid (Folvite) 1 mg PO QAM [facility] Stop: 09/12/19 08:59 Last Admin: 08/16/19 07:13 Dose: 1 mg Documented by: Heparin Sodium (Porcine) (Heparin Sodium (Porcine)) 5,000 units SQ Q12H [facility] Stop: 09/14/19 11:59 Last Admin: 08/15/19 23:26 Dose: 5,000 units Documented by: Hydralazine HCl (Hydralazine Hcl) 10 mg IV Q6 PRN PRN Reason: Hypertension Stop: 09/15/19 07:18 Last Admin: 08/16/19 07:56 Dose: 10 mg Documented by: Famotidine 20 mg/ Syringe 5 mls @ 2.5 mls/min IV BID [facility] Stop: 09/13/19 20:59 Last Admin: 08/16/19 07:56 Dose: 2.5 mls/min Documented by: Propofol (Diprivan) 1,000 mg in 100 mls @ 0 mls/hr IV .Q0M [facility]; Protocol Stop: 08/18/19 09:23 Last Titration: 08/16/19 09:19 Dose: Infused Documented by: Dexmedetomidine HCl 200 mcg/ (Sodium Chloride) 50 mls @ 22.47 mls/hr IV .Q2H14M [facility]; Protocol Stop: 08/19/19 09:23 Last Admin: 08/16/19 06:38 Dose: 1.1 mcg/kg/hr, 22.5 mls/hr Documented by: Lorazepam (Ativan) 2 mg in 4 mls @ 4 mls/min IV Q8 [facility] Stop: 09/14/19 13:59 Last Admin: 08/16/19 06:10 Dose: 4 mls/min Documented by: Multivitamins (Multivitamin Tab) 1 tab PO QAM [facility] Stop: 09/12/19 08:59 Last Admin: 08/16/19 07:13 Dose: 1 tab Documented by: Propranolol HCl (Inderal) 20 mg PO TID [facility] Stop: 09/13/19 20:59 Last Admin: 08/16/19 07:13 Dose: 20 mg Documented by: Thiamine HCl (Vitamin B-1) 100 mg PO QAM [facility] Stop: 09/12/19 08:59 Last Admin: 08/16/19 07:14 Dose: 100 mg Documented by: Ziprasidone (Geodon) 20 mg IM BID PRN PRN Reason: agitation Stop: 09/14/19 10:54 Last Admin: 08/15/19 23:42 Dose: 20 mg Documented by: PG Care Time/CCT Total # of Minutes Spent Total Time Spent with Patient: Total time spent is greater than 50% in coordination of care (as documented) at patient's floor/unit and/or counseling patient: 40min Resident Activity Tracking Resident Involvement: Resident Care Provided Care Provided: Adult Hospital Medicine
[2019-08-16] MEDS ORDERED: LORazepam 1 MG TAB PO PRN (10:00)
[2019-08-16] MEDS: propofoL 1,000 MG/100 ML VIAL IV SCH (10:01)
[2019-08-16] MEDS ORDERED: GABAPENTIN 600 MG TAB PO SCH (12:00)
[2019-08-16 12:28] LABS: Hepatitis A Antibody IgM NON-REACTIVE (NON-REACTIVE); Hepatitis B Core Antibody IgM NON-REACTIVE (NON-REACTIVE)
[2019-08-16] MEDS: HEPARIN SOD 5,000 UNIT/0.5 ML VIAL SQ SCH ×2 (14:14→23:12)
[2019-08-16] MEDS: ZIPRASIDONE 20 MG/ML SDV IM PRN (23:47)
[2019-08-17 04:13] LABS: Basophils # (auto) 0.04 K/uL (0-0.2); Basophils % (auto) 0.9 %; Eosinophils # (auto) 0.09 K/uL (0-0.5); Hematocrit (blood only) 33.2 % (42-52); Hemoglobin 11.4 g/dL (14.0-18.0); Immature Granulocytes # (auto) 0.01 K/uL (0.00-0.02); Immature Granulocytes % (auto) 0.2 %; Lymphocytes # (auto) 1.45 K/uL (1.2-3.4); Lymphocytes % (auto) 32.4 %; Mean Corpuscular Hemoglobin 33.9 pg (25-34); Mean Corpuscular Hgb Conc 34.3 g/dL (32-36); Mean Corpuscular Volume 98.8 fL (80-100); Mean Platelet Volume 10.2 fL (7.4-10.4); Monocytes # (auto) 0.78 K/uL (0.11-0.59); Monocytes % (auto) 17.4 %; Neutrophils # (auto) 2.11 K/uL (1.4-6.5); Neutrophils % (auto) 47.1 %; Platelet Count 181 K/uL (130-400); RDW Coefficient of Variation 12.7 % (11.5-14.5); RDW Standard Deviation 45.8 fL (36.4-46.3); Red Blood Count 3.36 M/uL (4.7-6.1); White Blood Count 4.48 K/uL (4.8-10.8)
[2019-08-17 04:34] LABS: Albumin Level 2.9 gm/dl (3.4-5.0); BUN Creatinine Ratio 7.9 (10-20); Bilirubin Direct 0.6 mg/dl (0-0.2); Calcium 8.1 mg/dl (8.5-10.1); Creatinine Clr Calc Pharmacy 111.5 ml/min; Est GFR (African American) 121.8; Est GFR (Non-African American) 105.1; Magnesium 1.8 mg/dl (1.8-2.4); Potassium 3.6 mmol/L (3.5-5.1)
[2019-08-17 04:36] LABS: Bilirubin,Total 1.3 mg/dl (0.2-1); Total Protein 6.7 gm/dl (6.4-8.2)
[2019-08-17] MEDS: LORazepam 2 MG/4 ML VIAL IV SCH ×2 (06:04→14:07)
--- NOTE | 2019-08-17 07:31 | Critical Care Progress Note ---
Date of Service August 17, 2019 Assessment & Plan (1) Admitted to intensive care unit: Reason Critically Ill: Acute agitated alcohol withdrawal delirium Neuro: Acute encephalopathy- improved -Acute alcohol withdrawal delirium hyperactive -DC'd Phenobarbital withdrawal order. Off precedex. Cont Ativan -Geodon prn for acute exacerbation of delirium -Restraints removed -Sedation: Off propofol now -PO thiamine, folic acid, MV -AWSS protocol ordered -Appreciate neuro recommendations -Depression: Will increase trazodone 100 mg HS moving forward. Appreciate Psych recommendations CV: Hypertension/Tachycardia- resolved -Hydrochlorothiazide: may resume on d/c -Related to alcohol withdrawal -Inderal 20 mg TID -PRN Hydralazine Pulm: -No acute concerns. Doing well s/p extubtion on RA Fluids/Renal: -No acute concerns GI/Nutrition: Transaminitis- improving -Likely alcoholic hepatitis -Hepatitis panel- pending -Liver US reviewed -IV Famotidine 20 mg BID -Calculated Discriminant Score- pt would NOT benefit from steroid administration -Regular diet tolerating Heme: Pancytopenia- improving -Bone marrow suppression secondary to alcohol use Endocrine: ICU hyperglycemia protocol Vascular access: Peripheral IVs DVT prophylaxis: Heparin 5000 units q12h Code Status: Full code Dispo: Stable for downgrade out of ICU Supervising Physician Co-Signing Physician Notes Patient seen and examined. EMR reviewed. Discussed on multidisciplinary rounds and with FP resident. Agree with his assessment and plan as noted. 48-year-old male transferred to the ICU for acute alcohol withdrawal intubated for agitation and delirium. Patient is doing well clinically. He has been weaned off of Precedex and has not required any additional doses of Ativan beyond his scheduled Ativan he remains somewhat impulsive but is easily redirectable. He is tolerating a regular diet. His French catheter was removed this morning. He is stable to transfer to the floor. Discussed with the hospitalist who were coordinate transfer and assume care. We will sign off once the patient leaves the ICU. Feel free to contact us with questions or concerns. Subjective 48 yo M found in bed this AM in NAD. No acute overnight events. Pt was sating well on RA now s/p extubation yesterday. Pt alert and able to follow commands. Tolerating PO intake. No other acute concerns or complaints. Review of Systems Review of Systems: All systems reviewed & are unremarkable except as noted in HPI & below Physical Exam Constitutional: WD/WN, vitals as above Eyes: PERRL, conjunctivae normal, anicteric sclerae ENMT: external ear and nose normal, oropharynx normal Respiratory: normal respiratory effort, lungs clear to auscultation Cardiovascular: RRR, no murmur, no edema Gastrointestinal (Abdomen): normal bowel sounds, soft, nontender, no hepatosplenomegaly Skin: no rashes, warm and dry Neurologic: CN's II-XI intact bilaterally Psychiatric: Orientation: alert Results & Data Vital Signs (Past 12 Hours) Vital Signs Temp Pulse Pulse Resp BP BP Pulse Ox 08/17/19 04:00 37.8 C H 90 18 125/78 96 08/17/19 03:01 91 H 18 93 08/17/19 03:00 91 H 22 125/69 94 08/17/19 02:30 90 18 95 08/17/19 02:01 90 17 97 08/17/19 02:00 102 H 25 H 135/88 98 08/17/19 01:30 88 17 95 08/17/19 01:07 92 H 08/17/19 01:01 92 H 18 97 08/17/19 01:00 96 H 18 147/91 H 98 08/17/19 00:30 102 H 16 08/17/19 00:01 90 18 99 08/17/19 00:00 91 H 18 123/81 99 08/16/19 23:42 94 H 26 H 134/92 99 08/16/19 23:36 99 H 22 100 08/16/19 23:01 93 H 26 H 99 08/16/19 23:00 95 H 19 136/72 99 08/16/19 22:31 92 H 26 H 98 08/16/19 22:30 93 H 28 H 135/94 100 08/16/19 22:01 93 H 26 H 99 08/16/19 22:00 92 H 24 140/91 99 08/16/19 21:31 93 H 22 08/16/19 21:30 95 H 21 142/92 H 08/16/19 21:01 94 H 15 99 08/16/19 21:00 94 H 22 127/89 100 08/16/19 20:39 97 H 131/80 08/16/19 20:30 95 H 08/16/19 20:01 96 H 100 08/16/19 20:00 95 H 139/81 100 Laboratory Results Laboratory Results - last 24 hr 08/15/19 08/16/19 08/16/19 04:27 10:05 20:21 WBC RBC Hgb Hct MCV MCH MCHC RDW Std Deviation RDW Coeff of Juan Plt Count MPV Immature Gran % (Auto) Neut % (Auto) Lymph % (Auto) [place] % (Auto) Eos % (Auto) Baso % (Auto) Immature Gran # (Auto) Neut # (Auto) Lymph # (Auto) [place] # (Auto) Eos # (Auto) Baso # (Auto) Sodium Potassium Chloride Carbon Dioxide Anion Gap BUN Creatinine Est Cr Clr Drug Dosing Est GFR ( Amer) Est GFR (Non-Af Amer) BUN/Creatinine Ratio Glucose Calcium Magnesium Total Bilirubin Direct Bilirubin AST ALT Alkaline Phosphatase Total Protein Albumin Folate > 24.00 Stool Occult Bld Scrn Negative Hepatitis A IgM Ab NON-REACTIVE Hep B Core IgM Ab NON-REACTIVE 08/17/19 08/17/19 03:58 03:58 WBC 4.48 L RBC 3.36 L Hgb 11.4 L Hct 33.2 L MCV 98.8 MCH 33.9 MCHC 34.3 RDW Std Deviation 45.8 RDW Coeff of Juan 12.7 Plt Count 181 MPV 10.2 Immature Gran % (Auto) 0.2 Neut % (Auto) 47.1 Lymph % (Auto) 32.4 [place] % (Auto) 17.4 Eos % (Auto) 2.0 Baso % (Auto) 0.9 Immature Gran # (Auto) 0.01 Neut # (Auto) 2.11 Lymph # (Auto) 1.45 [place] # (Auto) 0.78 H Eos # (Auto) 0.09 Baso # (Auto) 0.04 Sodium 136 Potassium 3.6 Chloride 103 Carbon Dioxide 26 Anion Gap 7.0 BUN 6 L Creatinine 0.81 Est Cr Clr Drug Dosing 111.5 Est GFR ( Amer) 121.8 Est GFR (Non-Af Amer) 105.1 BUN/Creatinine Ratio 7.9 L Glucose 89 Calcium 8.1 L Magnesium 1.8 Total Bilirubin 1.3 H Direct Bilirubin 0.6 H AST 181 H ALT 127 H Alkaline Phosphatase 86 Total Protein 6.7 Albumin 2.9 L Folate Stool Occult Bld Scrn Hepatitis A IgM Ab Hep B Core IgM Ab Medications Administered Current Inpatient Medications Folic Acid (Folvite) 1 mg PO QAM [facility] Stop: 09/12/19 08:59 Last Admin: 08/17/19 08:52 Dose: 1 mg Documented by: Heparin Sodium (Porcine) (Heparin Sodium (Porcine)) 5,000 units SQ Q12H [facility] Stop: 09/14/19 11:59 Last Admin: 08/16/19 23:12 Dose: 5,000 units Documented by: Hydralazine HCl (Hydralazine Hcl) 10 mg IV Q6 PRN PRN Reason: Hypertension Stop: 09/15/19 07:18 Last Admin: 08/16/19 07:56 Dose: 10 mg Documented by: Dexmedetomidine HCl 200 mcg/ (Sodium Chloride) 50 mls @ 0 mls/hr IV .Q0M [facility]; P rotocol Stop: 08/19/19 09:23 Last Admin: 08/17/19 08:53 Dose: Not Given Documented by: Lorazepam (Ativan) 2 mg in 4 mls @ 4 mls/min IV Q8 [facility] Stop: 09/14/19 13:59 Last Admin: 08/17/19 06:04 Dose: 4 mls/min Documented by: Lorazepam (Ativan) 1 - 3 mg PO UD PRN; Protocol PRN Reason: EtoH Withdrawal AWSS 6-10+ Stop: 09/15/19 09:59 Multivitamins (Multivitamin Tab) 1 tab PO [facility] Stop: 09/12/19 08:59 Last Admin: 08/17/19 08:52 Dose: 1 tab Documented by: Propranolol HCl (Inderal) 20 mg PO TID [facility] Stop: 09/13/19 20:59 Last Admin: 08/17/19 08:52 Dose: 20 mg Documented by: Thiamine HCl (Vitamin B-1) 100 mg PO QAM [facility] Stop: 09/12/19 08:59 Last Admin: 08/17/19 08:52 Dose: 100 mg Documented by: Ziprasidone (Geodon) 20 mg IM BID PRN PRN Reason: agitation Stop: 09/14/19 10:54 Last Admin: 08/16/19 23:47 Dose: 20 mg Documented by: PG Care Time/CCT Total # of Minutes Spent Total Time Spent with Patient: Total time spent is greater than 50% in coordination of care (as documented) at patient's floor/unit and/or counseling patient: Resident Activity Tracking Resident Involvement: Resident Care Provided Care Provided: Adult [facility]
[2019-08-17] MEDS: FOLIC ACID 1 MG TAB PO SCH (08:52)
[2019-08-17] MEDS: MULTIVITAMIN TAB PO SCH (08:52)
[2019-08-17] MEDS: PROPRANOLOL HCL 20 MG TAB PO SCH ×3 (08:52→20:51)
[2019-08-17] MEDS: THIAMINE HCL 100 MG TAB PO SCH (08:52)
[2019-08-17] MEDS: DEXMEDETOMIDINE HCL 200 MCG in SODIUM CHLORIDE 0.9% 48 ML IV SCH (08:53)
[2019-08-17] MEDS: lisinopriL 10 MG TAB PO SCH (11:03)
--- NOTE | 2019-08-17 11:09 | Hospitalist Progress Note ---
Date of Service August 17, 2019 Assessment & Plan (1) Seizure: Alcohol withdrawal seizure/delirium tremens Secondary to alcohol withdrawal -- Alcohol withdrawal protocol ordered Appreciate input from neurology No long-term antiseizure medications needed Patient and family is willing to pursue further care/alcohol inpatient rehab at [place](patient is visiting [place]) Appreciate input from social service Delirium Tremens -Required mechanical ventilation/Precedex drip, IV Ativan -Able to wean off sedation, extubated on 08/16/2019 In room air Stable to be transferred out of ICU, Given changed to as needed No evidence of agitation or tremor, vitals stable Low grade temp: Temperature 37.737.8(85485.4F ) , blood cultures negative Ordered for incentive spirometry Repeat chest x-ray in a.m., to assess for infiltrate(patient was to intubated) Continue to monitor Pancytopenia -- likely from Alcoholism -- no signs of infection, shortness of breath, bleeding -- peripheral smear: The findings are that of a non-specific pancytopenia. No overt changes of myelodysplasia or hemolysis are noted. Liver disease (cirrhosis) may result in pancytopenia. The MCV is noted to be at the higher end of normal. If clinically indicated then B12/folate testing is suggested - Depression -- with anxiety -- Psych consulted Trazodone increased to 100mg po daily Hypertension --BP remains stable Patient started on propanolol 30 mg 3 times daily: Continue Added lisinopril 10 mg daily Will hold off HCTZ Transaminitis Elevated LFTs -- Liver US: IMPRESSION: 1. No cholelithiasis or sonographic evidence of acute cholecystitis. 2. Hepatomegaly with hepatic steatosis. 3. No biliary ductal dilation. -- likely secondary to Alcoholism -- monitor outpatient ff up Pre-DM -- A1c 5.9 -- monitor as outpatient DVT prophylaxis. SCDs RE thrombocytopenia Full code (2) Alcohol withdrawal delirium, acute, hyperactive: Presented with alcohol withdrawal seizure: With delirium tremens: Required ICU admission/mechanical ventilation Plan of care discussed as above DISPOSITION Patient is visiting [place], lives in [place] Plan to discharge possible tomorrow if remains medically stable Patient's family physician: Dr Sukhdeep Beard MD phone # [phone] [place] [address] Hospital records/discharge summary will be faxed to patient's family physician for continuation of care Subjective Patient is seen in room 289 bed 1, No complaint of anxiety, no tremor, no agitation Alert awake oriented, very pleasant conversing appropriately Reports that he is "feeling fine" Willing to continue with alcohol rehab at [place] once discharged Cardiac monitoring shows stable vitals, with no tachycardia /arrhythmia or or hypertensive episodes Review of Systems Review of Systems: All systems reviewed & are unremarkable except as noted in HPI & below Physical Exam Constitutional: WD/WN, vitals as above Eyes: PERRL, conjunctivae normal, anicteric sclerae ENMT: external ear and nose normal, oropharynx normal Neck: trachea midline, no thyromegaly Respiratory: normal respiratory effort, lungs clear to auscultation Cardiovascular: RRR, no murmur, no edema Gastrointestinal (Abdomen): normal bowel sounds, soft, nontender, no hepatosplenomegaly Musculoskeletal: no cyanosis or clubbing, extremities motor strength 5/5 Skin: no rashes, warm and dry Neurologic: PERRL, EOMI, accommodation nl, no face palsy, no dysarthria Psychiatric: A+Ox3, euthymic affect Results & Data Vital Signs (Past 12 Hours) Vital Signs Temp Pulse Pulse Resp BP BP Pulse Ox 08/17/19 09:00 109 H 16 134/92 100 08/17/19 08:00 37.8 C H 109 H 19 152/101 H 97 08/17/19 07:00 97 H 16 129/102 H 91 08/17/19 04:00 37.8 C H 90 18 125/78 96 08/17/19 03:01 91 H 18 93 08/17/19 03:00 91 H 22 125/69 94 08/17/19 02:30 90 18 95 08/17/19 02:01 90 17 97 08/17/19 02:00 102 H 25 H 135/88 98 08/17/19 01:30 88 17 95 08/17/19 01:07 92 H 08/17/19 01:01 92 H 18 97 08/17/19 01:00 96 H 18 147/91 H 98 08/17/19 00:30 102 H 16 08/17/19 00:01 90 18 99 08/17/19 00:00 91 H 18 123/81 99 08/16/19 23:42 94 H 26 H 134/92 99 08/16/19 23:36 99 H 22 100
[2019-08-17] MEDS ORDERED: hydroCHLOROthiazide 25 MG TAB PO SCH (11:15)
[2019-08-17] MEDS: HEPARIN SOD 5,000 UNIT/0.5 ML VIAL SQ SCH ×2 (12:05→23:34)
[2019-08-17] MEDS ORDERED: LORazepam 2 MG/4 ML VIAL IV PRN (15:54)
--- NOTE | 2019-08-17 17:13 | Neurology Progress Note ---
Date of Service August 17, 2019 Assessment & Plan (1) Alcohol withdrawal: Mr. Fer Young is a 48 year old male admitted to [facility] for alcohol withdrawal seizure complicated due to delirium tremens requiring intubation. He is now extubated and doing much better. Tremors improved. He denies hallucinations. Mental clarity is improved. - Patient appears much improved. Will certainly need to establish with outpatient psychiatry or AA near his home - Recommend thiamine 100 mg tablet daily - Recommend starting Campral 666 mg TID daily which may help reduce the desire to drink - Driving restrictions vary from state to state. In [place] the law states an individual is not allowed to drive for 6 months after a seizure. (2) Alcohol withdrawal delirium, acute, hyperactive: (3) Seizure: Subjective PAtietn was seen and examined this afternoon. He reports feeling much better and denies confusion or hallucinations. he is oriente to place and situation. He endorses goal to stop alcohol. He denies complaint or feeling tremulous at this time. Physical Exam Physical Exam: EXAM: Constitutional: appearance normally developed, well nourished and non-obese Head and Face: normocephalic and atraumatic Eyes: normal lids, normal conjunctiva Neck: supple Respiratory: normal effort Cardiovascular: normal pulses Abdomen: non distended Skin: no rashes, lesions, or ulcers noted Psychiatric: normal judgement and insight, normal mood and normal affect NEUROLOGIC EXAMINATION: Appearance: no acute distress Orientation: awake, alert and oriented x 3 Mental Status: alert Memory: Poor Attention: normal Knowledge: [place] Language: no aphasia Speech: no dysarthria Cranial Nerves: CN 2 - no visual defect on confrontation and pupils round, equal, reactive to light CN 3, 4, 6 - extra-ocular movements intact and no nystagmus CN 5 - facial sensation intact CN 7 - no facial asymmetry CN 8 - intact hearing CN 9, 10 - palate symmetric CN 11 - good shoulder shrug CN 12 - tongue midline Gait: stable, no ataxia Coordination: mild intention tremor in both upper extremities Sensory: intact to light touch Muscle Tone: normal Muscle exam: 5/5 throughout Results & Data Vital Signs (Past 12 Hours) Vital Signs Temp Pulse Pulse Pulse Resp BP BP 08/17/19 16:15 37.5 C 88 18 134/87 08/17/19 15:36 93 H 08/17/19 15:04 102 H 08/17/19 14:44 08/17/19 12:18 37.0 C 53 L 18 126/66 08/17/19 11:38 36.9 C 85 20 141/96 H 08/17/19 09:00 109 H 16 134/92 08/17/19 08:00 37.8 C H 109 H 19 152/101 H 08/17/19 07:00 97 H 16 129/102 H Pulse Ox 08/17/19 16:15 97 08/17/19 15:36 08/17/19 15:04 08/17/19 14:44 97 08/17/19 12:18 95 08/17/19 11:38 98 08/17/19 09:00 100 08/17/19 08:00 97 08/17/19 07:00 91 (1) Alcohol withdrawal Complication of substance-induced condition: with unspecified complication Qualified Code(s): F10.239 - Alcohol dependence with withdrawal, unspecified
[2019-08-17] MEDS ORDERED: TRAZODONE HCL 100 MG TAB PO SCH (21:00)
[2019-08-18 06:14] LABS: Basophils # (auto) 0.04 K/uL (0-0.2); Basophils % (auto) 1.1 %; Eosinophils # (auto) 0.09 K/uL (0-0.5); Eosinophils % (auto) 2.5 %; Hematocrit (blood only) 31.5 % (42-52); Hemoglobin 10.9 g/dL (14.0-18.0); Immature Granulocytes # (auto) 0.01 K/uL (0.00-0.02); Immature Granulocytes % (auto) 0.3 %; Lymphocytes # (auto) 1.13 K/uL (1.2-3.4); Lymphocytes % (auto) 31.1 %; Mean Corpuscular Hemoglobin 34.4 pg (25-34); Mean Corpuscular Hgb Conc 34.6 g/dL (32-36); Mean Corpuscular Volume 99.4 fL (80-100); Mean Platelet Volume 10.3 fL (7.4-10.4); Monocytes # (auto) 0.89 K/uL (0.11-0.59); Monocytes % (auto) 24.5 %; Neutrophils # (auto) 1.47 K/uL (1.4-6.5); Neutrophils % (auto) 40.5 %; Platelet Count 227 K/uL (130-400); RDW Coefficient of Variation 12.5 % (11.5-14.5); RDW Standard Deviation 45.2 fL (36.4-46.3); Red Blood Count 3.17 M/uL (4.7-6.1); White Blood Count 3.63 K/uL (4.8-10.8)
[2019-08-18 06:56] LABS: Albumin Level 2.9 gm/dl (3.4-5.0); BUN Creatinine Ratio 8.9 (10-20); Bilirubin Direct 0.5 mg/dl (0-0.2); Calcium 8.3 mg/dl (8.5-10.1); Creatinine Clr Calc Pharmacy 114.4 ml/min; Est GFR (African American) 123.1; Est GFR (Non-African American) 106.2; Potassium 3.7 mmol/L (3.5-5.1)
[2019-08-18 06:59] LABS: Bilirubin,Total 1.2 mg/dl (0.2-1); Total Protein 6.7 gm/dl (6.4-8.2)
[2019-08-18] MEDS: THIAMINE HCL 100 MG TAB PO SCH (08:02)
[2019-08-18] MEDS: FOLIC ACID 1 MG TAB PO SCH (08:02)
[2019-08-18] MEDS: PROPRANOLOL HCL 20 MG TAB PO SCH (08:02)
[2019-08-18] MEDS: lisinopriL 10 MG TAB PO SCH (08:02)
[2019-08-18] MEDS: MULTIVITAMIN TAB PO SCH (08:02)
--- NOTE | 2019-08-18 11:08 | Discharge Summary ---
Date of Service August 18, 2019 Admission HPI Per Admitting Provider Fer Young is a 48-year-old male admitted medically on 08/12/19 after experiencing a seizure. It is perceived that this seizure was related to alcohol withdrawal, for which he is now being treated. It is reported that the patient was visiting his daughter, who is a freshman at [employer]. The seizure was observed by family, and he was brought to the ED for evaluation. Psychiatric consultation was requested for suspected depression. Patient's case is reviewed with psychiatric nurse liaison prior to evaluation. Pt was cooperative with interview, and is seen along with his Alyx, whom he requests to have present for the during of the evaluation. Pt states that he believes his seizure was a "combination of 3 things", citing the alcohol use, poor sleep, and increased anxiety as major contributing factors. Pt shares with this provider that he has been experiencing increased anxiety at work over the past 1 - 1.5 years. This stress has been building to the point of him submitting his resignation. Pt states that he and his had discussed this decision and believed it to be best for their family. Pt admits to low mood, but feels this is related to his current situation. He denies hopelessness or suicidal ideation. He states, "I really look forward to the future. We have our future planned, what we want to do when the kids are both in college. We've even started looking at properties." Pt denies significant changes in appetite or energy level. He does endorse difficulty sleeping, primarily sustaining sleep for more than 4 hours. He reports going to bed around 10:30, but waking a round 2:15 and being unable to return to sleep due to anxiety and racing thoughts. He denies symptoms consistent with panic attacks, but admits to tachycardia with elevated anxiety level. Pt's states that she has noticed a "slight depression" for the past year, with worsening over the past 6 months. She states "I think the depression led to his drinking issues, it's been a vicious cycle." states that the patient's drinking and poor sleep is suspected to be affecting his memory, as she has noticed mild episodes of confusion at home as well. Pt admits to increased alcohol intake over the past 6 months. He reports consuming 1/2 pint of vodka about 4 days a week. He admits his intent for drinking is to calm anxiety and allow his mind to rest, but denies intent to get intoxicated or black out. Pt denies prior inpatient D&A rehabilitation programs, but did meet with a D&A counselor for 2 sessions over 6 months ago. He and his state they are well aware of resources in their area for D&A treatment - which they prefer to do on an outpatient basis. Pt admits to motivation to abstain from alcohol use, and he is planning to reach out for counseling again. Pt feels comfortable returning to his PCP for medication management, who is also currently prescribing his trazodone. denies safety concerns related to her returning home after discharge. They were both encouraged to reach out with any additional needs or concerns and agreed to this. Pt denies SI, HI, SIB, A/V hallucinations, paranoia, didier/hypomania, other symptoms more suggestive of a bipolar presentation, OCD, PTSD, eating disorder, and other specific psychiatric symptoms. Principal Diagnosis ALCOHOL ABUSE/ADDICTION/ALCOHOL WITHDRAWAL SEIZURE/SEVERE ALCOHOL WITHDRAWAL DELIRIUM/ALCOHOLIC LIVER DISEASE, ABNORMAL LIVER FUNCTION, LOW BLOOD CELL COUNTS (PANCYTOPENIA) FROM CHRONIC ALCOHOL ABUS Discharge Exam Constitutional WD/WN, vitals as above Eyes PERRL, conjunctivae normal, anicteric sclerae ENMT external ear and nose normal, oropharynx normal Neck trachea midline, no thyromegaly Respiratory normal respiratory effort, lungs clear to auscultation Cardiovascular RRR, no murmur, no edema Gastrointestinal (Abdomen) normal bowel sounds, soft, nontender, no hepatosplenomegaly Musculoskeletal no cyanosis or clubbing, extremities motor strength 5/5 Skin no rashes, warm and dry Neurologic PERRL, EOMI, accommodation nl, no face palsy, no dysarthria Psychiatric A+Ox3, euthymic affect Discharge Data Allergies Allergy/AdvReac Type Severity Reaction Status Date / Time No Known Allergies Allergy Verified 08/12/19 20:46 Consultations 08/12/19 20:46 ED Decision to Admit Stat 08/12/19 23:46 Consult Case Management - Discharge Planning Routine Consult Neurology Routine Consult Psychiatry Routine 08/14/19 12:47 Consult [employer] Routine Ordered Studies 08/12/19 19:17 CT head/brain wo con Stat 08/13/19 07:37 US liver Routine Hospital Course (1) Seizure: Alcohol withdrawal seizure/delirium tremens Patient completed detox procedure, no tremor, will no withdrawal symptoms, has not required any PRN Ativan, Awake and alert and oriented, no confusion or delirium Presented with seizure secondary to alcohol withdrawal --Patient was treated with alcohol withdrawal protocol, Developed severe withdrawal symptoms required transfer to ICU mechanical ventilation with Precedex drip, Extubated, 2 days back, vitals been stable, has been transferred out of ICU overnight Appreciate input from neurology No long-term antiseizure medications needed/strongly counseled for alcohol abstinence, Patient is asked to not to drive, follow-up with family physician, and follow [facility] guideline for driving restriction on first episode of seizure("due to alcohol withdrawal) Patient and family is willing to pursue further care/alcohol inpatient rehab at [place](patient is visiting [place]) Appreciate input from social service Patient's present at bedside, patient is stable, awake and alert, eager to be discharged home Per patient's , they will travel back to [place] tomorrow, already been in contact with inpatient alcohol rehab, plan to enroll in rehab center next Thursday Patient is asked to follow-up with his family physician next week, prior to enrollment in rehab center if possible, Lab work, liver function test, CBC needs to be done to see improvement of pancytopenia, transaminitis Delirium Tremens Due to above/alcohol withdrawal -Required mechanical ventilation/Precedex drip, IV Ativan -Able to wean off sedation, extubated on 08/16/2019 In room air Stable to be transferred out of ICU, Has not required any PRN Ativan No evidence of agitation or tremor, vitals stable Low grade temp: Resolved, has been afebrile since yesterday , blood cultures negative No cough, no symptoms, no indication to repeat chest x-ray Pancytopenia -- likely from Alcoholism/colic liver disease -- no signs of infection, shortness of breath, bleeding -- peripheral smear: The findings are that of a non-specific pancytopenia. No overt changes of myelodysplasia or hemolysis are noted. Liver disease (cirrhosis) may result in pancytopenia. The MCV is noted to be at the higher end of normal. If clinically indicated then B12/folate testing is suggested Patient is asked for repeat CBC in a week - Depression -- with anxiety -- Psych consulted Trazodone increased to 100mg po daily And is counseled to outpatient follow-up with psychiatry and psychotherapist, Hypertension Added lisinopril 10 mg daily Patient noted to have baseline hyponatremia, possible secondary to chronic alcohol abuse/alcoholic liver disease, HCTZ discontinued Patient will need continued family physician follow-up for blood pressure management and medication adjustment as needed Transaminitis Elevated LFTs -- Liver US: IMPRESSION: 1. No cholelithiasis or sonographic evidence of acute cholecystitis. 2. Hepatomegaly with hepatic steatosis. 3. No biliary ductal dilation. -- likely secondary to Alcoholism/alcoholic liver disease -Prescription given for outpatient liver function test, need to follow-up with family physician May need referral to GI, if liver function test remains persistently elevated, also possible EGD as outpatient evaluation for esophageal varices Pre-DM -- A1c 5.9 -- monitor as outpatient DVT prophylaxis. SCDs RE thrombocytopenia Full code (2) Alcohol withdrawal delirium, acute, hyperactive: DISPOSITION Patient is visiting [place], lives in [place] Able to be discharged home today Plan of care discussed with patient's and his Prescription given for lab work to be checked next week with family physician visit DISCHARGE SUMMARY WILL BE FAXED TO PATIENT'S FAMILY PHYSICIAN: Dr Sukhdeep Beard MD phone # [phone] [place] [address] Hospital records/discharge summary will be faxed to patient's family physician for continuation of care Total Time Total Time Spent Total Time Spent (In Minutes): Approximately 45 minutes Total Time Includes: Examination of the Patient, Discharge Planning and Medication Reconciliation Discharge Plan Discharge Items Patient Disposition: Home - Self-Care Reason For Visit: ETOH WITHDRAWAL Discharge Diagnosis: ALCOHOL ABUSE/ADDICTION/ALCOHOL WITHDRAWAL SEIZURE/SEVERE ALCOHOL WITHDRAWAL DELIRIUM/ALCOHOLIC LIVER DISEASE, ABNORMAL LIVER FUNCTION, LOW BLOOD CELL COUNTS (PANCYTOPENIA) FROM CHRONIC ALCOHOL ABUSE Activity: Resume your previous activity Non-emergency contact: Primary Care Provider Call non-emergency contact if: you have any medication questions Follow-up/Referrals: PCP,NO [Primary Care Provider] - Diet: Heart Healthy Ambulatory Orders: Complete Blood Count no Diff (Routine) Timeframe: 1 Week Location: Determined by Patient Ordered By: Haylee Leach Hepatic Panel (Routine) Timeframe: 1 Week Location: Determined by Patient Ordered By: Haylee Leach Addtl Attending Provider Instructions: Lab work: Complete blood work in 1 week Liver function test: In 1 week Is very important for your health -complete abstinence from alcohol Please establish with a inpatient alcohol rehab for continued treatment for alcohol addiction Hospital follow-up with family physician within a week, please call to schedule an appointment YOU WERE ADMITTED TO [facility] WITH ALCOHOL WITHDRAWAL SEIZURE DO NOT DRIVE UNTIL EVALUATED BY YOUR FAMILY PHYSICIAN Please follow the state indicated driving restriction after first episode of provoked seizure Medication changes: Blood pressure medications: Hydrochlorothiazide is discontinued New medication: Lisinopril 10 mg by mouth daily Need to follow-up with your family physician for continued titration of blood pressure medication Continue take: Folic acid/thiamine/multivitamin Trazodone dose increased 100 mg daily Pending Studies at Discharge: Yes Stand-Alone Forms: My [facility] Medications and DC Order Prescriptions: New lisinopril 10 mg Tablet 10 mg PO DAILY 30 Days Qty: 30 RF: 0 multivitamin [Daily-Kiet] Tablet 1 tab PO QAM 30 Days Qty: 30 RF: 0 thiamine HCl (vitamin B1) [Vitamin B-1] 100 mg Tablet 100 mg PO QAM 30 Days Qty: 30 RF: 0 folic acid 1 mg Tablet 1 mg PO QAM 30 Days Qty: 30 RF: 0 trazodone 50 mg tablet 100 mg PO HS 30 Days Qty: 60 RF: 0 Discontinued hydrochlorothiazide 25 mg tablet 25 mg PO DAILY RF: 0 Discharge Orders: Discharge Order (Routine); Ordered 08/18/19 Ordered By: Haylee Leach Admission Data Admit Date/Time: 08/12/19 22:34 Attending Provider: Haylee Leach Admit Provider: Zac Doyle Primary Care Provider: PCP,NO Other Providers: Zac Doyle ; Rakesh Taylor ; Katelyn Carmona ; Demarcus Gabriel Other Interventions: Discharge Summary Assessment (RN) Last Done: 08/18/19 11:11
== END 2019-08-18 12:34 | disposition alcohol treatment (31) | DRG 897 ==
LOC: ED 18:41 → SUATTDRO 22:34 → 2N 22:34 → 1E 08-14 10:59 → 2N 08-17 10:26